=== PATIENT | male | born 1940 | race Caucasian/White ===

== ENCOUNTER 2016-12-25 13:04 | Inpatient (IN) ==
--- NOTE | 2016-12-25 14:30 | Emergency Department Note ---
Disposition Clinical Impression: Pneumonia Qualifiers: Pneumonia type: due to Haemophilus influenzae Laterality: unspecified laterality Lung location: unspecified part of lung Qualified Code(s): J14 - Pneumonia due to Hemophilus influenzae Disposition: Admitted As Inpatient Condition: Good Time of Disposition: 16:05 Recheck wound or abnormal lab - General Chief Complaint: ED Recheck/Abnormal Lab/Rx Stated Complaint: "Haemophilus influensia", needs IV antibiotic Time Seen by Provider: 12/25/16 13:27 Source: patient Mode of arrival: private vehicle Limitations: no limitations Nursing Notes Reviewed: Yes Vital Signs Reviewed: Yes - History of Present Illness HPI Narrative: 76-year-old male with past medical history of hypertension, hyperlipidemia, on cactuses, Gerd, migraines, coronary artery disease with stent placement, history of [place]. Patient was just at ED on 12/20/16 for fever and symptoms of possible pneumonia. Patient does have a chronic history of pneumonia with his bronchiectasis, and has a history of E. coli pneumonia. at his last ER visit, he was given a dose of IV cefepime and sent home with follow up with infectious disease. Patient was discharged home, and states that she spoke with ID over the phone, and was instructed to take cefdinir at home, which he already had a prescription for. patient states he still has been having fevers at home with brownish/yellow sputum production. he admits to nauesa without vomiting, diarrhea. he does report fevers ,chills, shortness of breath. he denies hemoptysis. patient is on oxygen at home, he uses 4L during the day as needed, and 2L at night. this morning, patient's spoke with ID over the phone, and they were instructed to come to the ED for further evaluation. patient's sputum cultures from last week grew pseudomonas and haemophilus influenza. Pt Subjective Complaint: abnormal lab(s) Initial Visit (ago): day(s) Initial Visit For: other (fever) Symptoms Since Prior Visit: fever - Related Data Home Medications Medication Instructions Recorded Confirmed Metoprolol XL (24 HR) Succ [Toprol 12.5 mg PO DAILY 02/04/15 12/25/16 Xl] Niacin (24 HR) [Niaspan] 500 mg PO HS 02/04/15 12/25/16 Albuterol Neb [Proventil Neb] 2.5 mg IH PRN PRN 12/31/15 12/25/16 Albuterol Sulfate [Proair Hfa] 2 puff IH Q4H PRN 12/31/15 12/25/16 Aspirin Enteric Coated [Aspirin EC] 81 mg PO DAILY 12/31/15 12/25/16 Budesonide/Formoterol 160/4.5 2 puff IH BID PRN 12/31/15 12/25/16 [Symbicort 160/4.5] Lansoprazole [Prevacid] 30 mg PO DAILY 12/31/15 12/25/16 [place]-3/Dha/Epa/Fish Oil [Fish Oil 1,000 mg PO DAILY 03/11/16 12/25/16 1,000 mg Softgel] Ranitidine HCl [Heartburn Relief] 150 mg PO PRN PRN 03/11/16 12/25/16 Acetylcysteine 600 mg PO TID 12/25/16 12/25/16 [I-Ullehl-q-Cysteine] Azelastine 0.1% Nasal [place] 1 spr NS BID 12/25/16 12/25/16 [Astelin] Oxygen 2 - 4 l NS AD 12/25/16 12/25/16 Testosterone Cypionate 200 mg IM Q10D 12/25/16 12/25/16 [Depo-Testosterone] Allergies Allergy/AdvReac Type Severity Reaction Status Date / Time levofloxacin [From Levaquin] AdvReac Rash Verified 12/25/16 16:30 ondansetron AdvReac Hives Verified 12/25/16 16:30 [From Zofran (as hydrochloride)] Penicillins AdvReac Rash Verified 12/25/16 16:30 All systems ED: reviewed and negative except as stated. Constitutional: Reports: fever, weakness. Denies: weight change, night sweats Respiratory: Denies: hemoptysis Past Medical History - Past Medical History Source: patient, old records reviewed, obtained from family, nursing notes reviewed, other Medical history: Reports: COPD, coronary artery disease, GERD, hyperlipidemia, hypertension, myocardial infarction Surgical history: Reports: angioplasty/stent, other Psychiatric history: Reports: no psych history - Social History Smoking Status: Never smoker Smokeless Tobacco Status: No Alcohol use: Reports: none Drug use: Reports: none Physical Exam - General Limitations: no limitations General appearance: alert, in no apparent distress, other (patient sitting on the bed comfortably, does not appear to be short of breath, he is in no apprent distress. ) - Head Head exam: atraumatic, normocephalic - Eye Eye exam: Present: normal appearance - ENT ENT exam: normal exam - Neck Neck exam: Present: normal inspection, trachea midline - Chest Chest inspection: Present: symmetric chest wall rise - Respiratory Respiratory exam: Present: other (rales and rhonchi present diffusely, bilaterally. ) - Cardiovascular Cardiovascular exam: Present: regular rate, normal rhythm, +S1, +S2 - Abdominal Exam Abdominal exam: Present: soft, Non-Tender, normal bowel sounds - Extremities Exam Extremities exam: Present: normal inspection - Neurological Exam Neurological exam: Present: alert, oriented X3 - Psychiatric Psychiatric exam: Present: normal affect, normal mood - Skin Skin exam: Present: warm, dry, intact Course Vital Signs Temperature 97.9 F 12/25/16 13:20 Pulse Rate 85 12/25/16 13:20 Respiratory Rate 16 12/25/16 13:20 Blood Pressure 137/69 12/25/16 13:20 O2 Sat by Pulse Oximetry 88 12/25/16 13:20 Temperature 98.3 F 12/26/16 07:10 Pulse Rate 85 12/26/16 07:10 Respiratory Rate 18 12/26/16 07:10 Blood Pressure 107/53 12/26/16 07:10 O2 Sat by Pulse Oximetry 95 12/26/16 07:10 Oxygen Delivery Oxygen Delivery Nasal Cannula Recheck wound or abnormal lab - MDM Narrative Medical decision making narrative: CBC showed no elevated WBC, Hg was 9.4 (baseline around 11), coags unremarkable , lactic acid and LFTs unremarkable. EKG showed no signs of ischemia. Prashanth received midline IV, and will be admitted to hospitalist for IV anitbiotics. chest xray showed airspace opacities at lung bases, pneumonia cannot be ruled out. spoke with Dr. Ferguson, who suggested that patient should be admitted for IV antibiotics, as there are no options for oral antibiotics based on his sensitivities. spoke with admitting physician Dr. Pandey, who agrees with admission. - Medical Records Medical records reviewed: Yes I reviewed the patient's medical records. - Lab Data Lab results reviewed: Yes I reviewed the patient's lab results. Result diagrams: 12/26/16 04:10 07/01/17 04:10 Lab Results 12/25/16 12/25/16 12/25/16 Range/Units 14:36 14:36 14:36 WBC 8.6 (4.3-11.1) K/mcL RBC 3.90 L (4.19-5.50) M/mcL Hgb 9.4 L (12.9-16.9) g/dL Hct 30.9 L (37.5-50.1) % MCV 79.2 L (83.0-100.0) fL MCH 24.1 L (28.0-33.3) pg MCHC 30.4 L (31.6-35.5) g/dL RDW 15.7 H (11.5-14.5) % Plt Count 317 (140-400) K/mcL MPV 8.8 L (9.4-12.4) fL Immature Gran % 0.3 (0-4) % Seg Neutrophils % 71.1 % Lymphocytes % 15.9 % Monocytes % 6.3 % Eosinophils % 5.8 % Basophils % 0.6 % Neutrophils # 6.1 (1.6-8.9) K/mcL Lymphocytes # 1.4 (0.6-4.6) K/mcL Monocytes # 0.5 (0.0-1.3) K/mcL Eosinophils # 0.5 (0.0-0.6) K/mcL Basophils # 0.1 (0.0-0.2) K/mcL PT 13.7 H (9.4-12.1) Seconds INR 1.3 APTT 26.8 (26.0-36.0) Seconds Sodium 136 (136-145) mEq/L Potassium 3.7 (3.5-4.5) mEq/L Chloride 101 (98-109) mEq/L Carbon Dioxide 30 H (19-29) mEq/L BUN 11 (8-26) mg/dL Creatinine 0.84 (0.72-1.25) mg/dL Est GFR ( Amer) > 60 (> 60) Est GFR (Non-Af Amer) > 60 (> 60) BUN/Creatinine Ratio 13 (6-26) Glucose 165 H (70-99) mg/dL Calculated Osmolality 285 (280-300) Lactic Acid (0.5-2.2) mmol/L Calcium 9.0 (8.6-10.8) mg/dL Magnesium 1.6 (1.6-2.6) mg/dL Total Bilirubin 0.3 (0.2-1.2) mg/dL Direct Bilirubin 0.2 (0.0-0.5) mg/dL Indirect Bilirubin 0.1 (0.0-1.2) mg/dL AST 11 (5-34) Units/L ALT 7 (0-55) Units/L Alkaline Phosphatase 70 (38-126) Units/L Serum Total Protein 7.1 (6.0-8.3) g/dL Albumin 3.0 L (3.5-5.0) g/dL Globulin 4.1 H (2.4-3.5) g/dL Albumin/Globulin Ratio 0.7 L (1.1-2.2) 12/25/16 Range/Units 14:36 WBC (4.3-11.1) K/mcL RBC (4.19-5.50) M/mcL Hgb (12.9-16.9) g/dL Hct (37.5-50.1) % MCV (83.0-100.0) fL MCH (28.0-33.3) pg MCHC (31.6-35.5) g/dL RDW (11.5-14.5) % Plt Count (140-400) K/mcL MPV (9.4-12.4) fL Immature Gran % (0-4) % Seg Neutrophils % % Lymphocytes % % Monocytes % % Eosinophils % % Basophils % % Neutrophils # (1.6-8.9) K/mcL Lymphocytes # (0.6-4.6) K/mcL Monocytes # (0.0-1.3) K/mcL Eosinophils # (0.0-0.6) K/mcL Basophils # (0.0-0.2) K/mcL PT (9.4-12.1) Seconds INR APTT (26.0-36.0) Seconds Sodium (136-145) mEq/L Potassium (3.5-4.5) mEq/L Chloride (98-109) mEq/L Carbon Dioxide (19-29) mEq/L BUN (8-26) mg/dL Creatinine (0.72-1.25) mg/dL Est GFR ( Amer) (> 60) Est GFR (Non-Af Amer) (> 60) BUN/Creatinine Ratio (6-26) Glucose (70-99) mg/dL Calculated Osmolality (280-300) Lactic Acid 1.7 (0.5-2.2) mmol/L Calcium (8.6-10.8) mg/dL Magnesium (1.6-2.6) mg/dL Total Bilirubin (0.2-1.2) mg/dL Direct Bilirubin (0.0-0.5) mg/dL Indirect Bilirubin (0.0-1.2) mg/dL AST (5-34) Units/L ALT (0-55) Units/L Alkaline Phosphatase (38-126) Units/L Serum Total Protein (6.0-8.3) g/dL Albumin (3.5-5.0) g/dL Globulin (2.4-3.5) g/dL Albumin/Globulin Ratio (1.1-2.2) - Radiology Data Radiology results reviewed: Yes I reviewed the patient's radiology results. - EKG Data EKG attestation: Yes I reviewed and interpreted this EKG. EKG results narrative: sinus rhythm with occasional PVCs . Ventricular rate 79, MS interval 130, QRS duration: 120, Qt/Qtc: 378/413, P-R-T axes 53 46 5 Attestation Statement - Attestation Attestation: I examined this patient and my medical decision-making was reviewed with the JOB ANALYST/PA/Advanced Practice Nurse/Resident Physician. I agree with the documented findings, disposition and treatment plan as described except to the extent set forth below. Patient presents with positive sputum culture for oral anabiotic resistance we spoke with Dr. Lopez infectious disease patient also spoke with the pulmonology office, his primary care office, and his infectious disease office, they will recommended IV anabiotic hospitalization. Patient is comfortable with no acute distress Catheter was placed admission to the hospitalist service.
[2016-12-25 14:49] LABS: Basophils # 0.1 K/mcL (0.0-0.2); Basophils % 0.6 %; Eosinophils # 0.5 K/mcL (0.0-0.6); Eosinophils % 5.8 %; Hematocrit 30.9 % (37.5-50.1); Hemoglobin 9.4 g/dL (12.9-16.9); Immature Granulocytes % 0.3 % (0-4); Lymphocytes # 1.4 K/mcL (0.6-4.6); Lymphocytes % 15.9 %; Mean Corpuscular HGB Conc 30.4 g/dL (31.6-35.5); Mean Corpuscular Hemoglobin 24.1 pg (28.0-33.3); Mean Corpuscular Volume 79.2 fL (83.0-100.0); Mean Platelet Volume 8.8 fL (9.4-12.4); Monocytes # 0.5 K/mcL (0.0-1.3); Monocytes % 6.3 %; Neutrophils # 6.1 K/mcL (1.6-8.9); Platelet Count 317 K/mcL (140-400); Red Cell Distribution Width 15.7 % (11.5-14.5); Segmented Neutrophils % 71.1 %
[2016-12-25 14:55] LABS: INR 1.3; Prothrombin Time 13.7 Seconds (9.4-12.1)
[2016-12-25 14:57] LABS: Activated Partial Thrombo Time 26.8 Seconds (26.0-36.0)
[2016-12-25 15:03] LABS: Alanine Aminotransferase 7 Units/L (0-55); Albumin/Globulin Ratio 0.7 (1.1-2.2); Alkaline Phosphatase 70 Units/L (38-126); Aspartate Amino Transferase 11 Units/L (5-34); BUN/Creatinine Ratio 13 (6-26); Bilirubin,Direct 0.2 mg/dL (0.0-0.5); Bilirubin,Indirect 0.1 mg/dL (0.0-1.2); Bilirubin,Total 0.3 mg/dL (0.2-1.2); Blood Urea Nitrogen 11 mg/dL (8-26); Carbon Dioxide 30 mEq/L (19-29); Chloride 101 mEq/L (98-109); Globulin 4.1 g/dL (2.4-3.5); Glucose 165 mg/dL (70-99); Magnesium 1.6 mg/dL (1.6-2.6); Osmolality,Calculated 285 (280-300); Potassium 3.7 mEq/L (3.5-4.5); Sodium 136 mEq/L (136-145); Total Protein 7.1 g/dL (6.0-8.3); eGFR For African Americans > 60 (> 60); eGFR For Non-African Americans > 60 (> 60)
[2016-12-25] MEDS ORDERED: Naloxone 0.4 MG/ML INJ IVP PRN (16:42)
[2016-12-25] MEDS ORDERED: Famotidine 20 MG TABLET PO PRN (16:58)
--- NOTE | 2016-12-25 17:29 | Internal Med History&Physical ---
<Wanda Norman - Last Filed: 12/25/16 17:46> Date of Encounter: 12/25/16 Time of Encounter: 17:26 Assessment and Plan (1) Pneumonia Current visit: Yes Status: Acute 1patient had been treated as outpatie cultures came back with Haemophilus influenza as well as Pseudomonas. Sensitive to only IV antibiotics we will initiate on meropenem. PICC line was placed for long-term IV antibiotics administration 2 we will continue with oxygen titrated to maintain SPO2 greater than 92% 3 bronchodilators 4 consult infectious disease-consult placed on the to follow-up with call per day team Qualifiers: Pneumonia type: due to Haemophilus influenzae Laterality: unspecified laterality Lung location: unspecified part of lung Qualified Code(s): J14 - Pneumonia due to Hemophilus influenzae (2) Respiratory failure with hypoxia Current visit: Yes Status: Acute 1 patient presented with dyspnea and hypoxia SPO2 is 88% on room air requiring oxygen supplementation. He was being treated for pneumonia cultures indicated Haemophilus as well as Pseudomonas. We will continue with IV antibiotics 2 continue with oxygen titrated maintaining SPO2 greater than 92% 3 bronchodilators Qualifiers: Chronicity: acute on chronic Qualified Code(s): J96.21 - Acute and chronic respiratory failure with hypoxia (3) CAD (coronary artery disease) Current visit: No Status: Chronic 1 we will continue with aspirin and beta tayler 2 low sodium diet 3 nitrates as needed Qualifiers: Coronary Disease-Associated Artery/Lesion type: [place] artery [place] vs. transplanted heart: [place] heart Associated angina: without angina Qualified Code(s): I25.10 - Atherosclerotic heart disease of [place] coronary artery without angina pectoris (4) Hypertension Current visit: No Status: Chronic 1 presently controlled we will continue with metoprolol Qualifiers: Hypertension type: essential hypertension Qualified Code(s): I10 - Essential (primary) hypertension (5) COPD (chronic obstructive pulmonary disease) Current visit: No Status: Chronic 1 we will continue with oxygen titrated to maintain SPO2 greater than 92% 3 bronchodilators Qualifiers: COPD type: unspecified COPD Qualified Code(s): J44.9 - Chronic obstructive pulmonary disease, unspecified (6) DVT prophylaxis Current visit: Yes Status: Acute Lovenox subcutaneous Internal Medicine - H&P: HPI Chief complaint: SOB cough Admitted From: Emergency Dept Plans for Post Hospital Care: Home History of present illness: Mr. Small is a 76 year old male with past history of hypertension hyperlipidemia GERD migraines coronary disease with stent placement history of [place] recurrent pneumonia. Patient has a past history of chronic pneumonia with Escherichia coli most recent earlier this month and he had received 2 weeks of IV antibiotic treatment.Patient was just in the ED on 12/20/16 for fevers and symptoms of possible pneumonia. He was given a dose of IV cefepime sputum culture was obtained and he was advised to follow up with infectious disease and discharged home. The spoke with infectious disease of the family was instructed to take Cefdinir which ER he had a prescription for. The patient continued to have fevers chills cough shortness of breath requiring supplemental oxygen use brownish yellow sputum production as well as nausea during coughing. Patient is normally on oxygen 2 L at night 4 L during the day as needed however he is required 24-hour oxygen use. Today the patient's received a phone call from infectious disease advising patient to go to the ER for evaluation his sputum culture grew Pseudomonas and Haemophilus influenza. He presented to the ER with these complaints. Upon presentation patient was hypoxic with SPO2 of 88% on room air. He is 96 on 4 L. His white count is 8.6 magnesium was 1.6 lactate was 1.7rest lab work was unremarkable. Chest x-ray suggestive of pneumonia He has been admitted for further workup and evaluation. Presently the patient denies any chest pain shortness of breath he does not appear to be in respiratory distress. His lung sounds have some scattered coarse rhonchi and occasional expiratory wheeze. Heart sounds S1-S2 with no rubs clicks, murmurs noted. Abdomen soft nontender no pedal edema noted. He is sinus rhythm on the monitor. Presently is hemodynamically stable. Past Med Surg Social Fam HX - Past Medical History Medical history: COPD, coronary artery disease, GERD, hyperlipidemia, hypertension, myocardial infarction Psychiatric history: no psych history - Past Surgical History Surgical History: angioplasty/stent, other - Social History Smoking Status: Never smoker Smokeless Tobacco Status: No Alcohol use: none Drug use: none - Family History Mother Living Status: Hx Family Respiratory Disorders: Yes (lung cancer) Hx Family Cancer: Yes (lung) Father Adopted: No Family Member Ethnicity: Non- Living Status: Hx Family Cardiac Disorders: Yes (Heart attack, htn) Hx Family Respiratory Disorders: No Hx Family Cancer: Yes Hx Family GI Disorders: No Hx Family Endocrine Disorder: Yes Hx Family Neuromuscular Disorders: No Hx Family Neurologic Disorders: No Hx Family HEENT Disorders: No Hx Family Autoimmune Disorders: Yes Brother Hx Family Cancer: Yes (Leukemia) Internal Medicine - H&P: Meds Metoprolol XL (24 HR) Succ [Toprol Xl] 12.5 mg PO DAILY 02/04/15 [History] Niacin (24 HR) [Niaspan] 500 mg PO HS 02/04/15 [History] Albuterol Neb [Proventil Neb] 2.5 mg IH PRN PRN 12/31/15 [History] Albuterol Sulfate [Proair Hfa] 2 puff IH Q4H PRN 12/31/15 [History] Aspirin Enteric Coated [Aspirin EC] 81 mg PO DAILY 12/31/15 [History] Budesonide/Formoterol 160/4.5 [Symbicort 160/4.5] 2 puff IH BID PRN 12/31/15 [ History] Lansoprazole [Prevacid] 30 mg PO DAILY 12/31/15 [History] [place]-3/Dha/Epa/Fish Oil [Fish Oil 1,000 mg Softgel] 1,000 mg PO DAILY 03/11/16 [History] Ranitidine HCl [Heartburn Relief] 150 mg PO PRN PRN 03/11/16 [History] Acetylcysteine [J-Rfmrzv-u-Cysteine] 600 mg PO TID 12/25/16 [History] Azelastine 0.1% Nasal [place] [Astelin] 1 spr NS BID 12/25/16 [History] Oxygen 2 - 4 l NS AD 12/25/16 [History] Testosterone Cypionate [Depo-Testosterone] 200 mg IM Q10D 12/25/16 [History] Allergies levofloxacin [From Levaquin] Adverse Reaction (Verified 12/25/16 16:30) Rash ondansetron [From Zofran (as hydrochloride)] Adverse Reaction (Verified 16:30) Hives Penicillins Adverse Reaction (Verified 12/25/16 16:30) Rash All Systems PM: A 10-system review of systems was performed and is negative for pertinent findings except as documented above in the HPI. - Constitutional Constitutional: no chills, no fever(s), no night sweats - EENT Eyes: no change in vision, no discharge, no pain, no photophobia Nose, mouth and throat: no dysphagia, no nasal discharge, no neck pain, no sore throat - Cardiovascular Cardiovascular ROS IM: no chest pain, no diaphoresis, no dyspnea, no lightheadedness, no palpitations, no syncope - Respiratory Respiratory: cough, dyspnea, change in phlegm color, no wheezing, no excessive phlegm production - Gastrointestinal Gastrointestinal: no abdominal pain, no diarrhea, no hematemesis, no hematochezia, no melena, no nausea, no vomiting - Musculoskeletal Musculoskeletal ROS IM: no numbness, no tingling - Integumentary Integumentary IM: no rash, no unusual bruising - Neurological Neurological ROS: no confusion, no convulsions, no focal weakness, no numbness, no tingling, no tremor(s) - Hematologic/Lymphatic Hematologic/Lymphatic: no easy bruising - Constitutional Vitals: Temp Pulse Resp BP Pulse Ox 97.9 F 76 16 125/68 94 12/25/16 13:20 12/25/16 16:57 12/25/16 16:57 12/25/16 16:57 12/25/16 16:57 General appearance: Present: A&O X 3 - Head Head exam: Present: atraumatic, normocephalic - Eye Eye exam: Present: PERRL, conjuntiva pink, sclera anicteric Pupils: Present: PERRL - Neck Neck exam general surgery: Present: supple, trachea midline. Absent: lymphadenopathy - Respiratory Respiratory exam: Present: rhonchi - Cardiovascular Cardiovascular exam: Present: RRR, +S1, +S2. Absent: diastolic murmur, gallop, rubs, systolic murmur - GI/Abdominal GI/Abdominal exam: Present: normal bowel sounds, soft, no peritoneal signs. Absent: distended, tenderness - Extremities Exam Extremities exam: Present: warm, radial pulses palpable and symetrical. Absent : calf tenderness, cyanotic, pedal edema - Neurological Exam Neurological exam: Present: CN II-XII intact, oriented X3, no focal deficits. Absent: pronater drift, facial droop, speech deficit - Skin Skin exam: Present: dry, intact Internal Med - H&P Results - Labs CBC & Chem 7: 12/25/16 14:36 12/25/16 14:36 Labs: Short CBC 12/25/16 Range/Units 14:36 WBC 8.6 (4.3-11.1) K/mcL Hgb 9.4 L (12.9-16.9) g/dL Hct 30.9 L (37.5-50.1) % Plt Count 317 (140-400) K/mcL Neutrophils # 6.1 (1.6-8.9) K/mcL BMP 12/25/16 14:36 Sodium 136 Potassium 3.7 Chloride 101 Carbon Dioxide 30 H BUN 11 Creatinine 0.84 Glucose 165 H Calcium 9.0 Liver Function 12/25/16 Range/Units 14:36 Total Bilirubin 0.3 (0.2-1.2) mg/dL Direct Bilirubin 0.2 (0.0-0.5) mg/dL AST 11 (5-34) Units/L ALT 7 (0-55) Units/L Alkaline Phosphatase 70 (38-126) Units/L Albumin 3.0 L (3.5-5.0) g/dL - EKG Data EKG shows normal: sinus rhythm - Impressions ITS Impressions Chest X-Ray 12/25/16 14:23 IMPRESSION: Interstitial and airspace opacity is re-identified at the lung bases, not significantly changed when compared to the recent prior exam, although slightly increased over time. Superimposed pneumonia on the background of chronic interstitial disease should be considered. D/ / 12/25/2016 15:32:50 Gautam Gomez MD / [place] Interpreting Provider: Gautam Gomez MD - Diagnostic Studies Chest x-ray Additional comments: Chest X-Ray 12/25/16 14:23 IMPRESSION: Interstitial and airspace opacity is re-identified at the lung bases, not significantly changed when compared to the recent prior exam, although slightly increased over time. Superimposed pneumonia on the background of chronic interstitial disease should be considered. D/ / 12/25/2016 15:32:50 Gautam Gomez MD / edwin Interpreting Provider: Gautam Gomez MD <Kleber Pandey - Last Filed: 12/25/16 18:46> Date of Encounter: 12/25/16 Internal Medicine - H&P: HPI History of present illness: Mr. Small is a 76 year old male All Systems PM: A 10-system review of systems was performed and is negative for pertinent findings except as documented above in the HPI. - Constitutional Vitals: Temp Pulse Resp BP Pulse Ox 97.9 F 80 18 131/61 96 12/25/16 13:20 12/25/16 17:30 12/25/16 17:37 12/25/16 17:37 12/25/16 17:30 Internal Med - H&P Results - Labs CBC & Chem 7: 12/25/16 14:36 12/25/16 14:36 - Attending Attestation I have reviewed this patient and discussed plan of care with ANDIE Norman Known patient with bronchiectasis and recurrent pneumonia, who had presented to the ER with worsening cough and fever with increasing sputum, sputum culture sent from ER grew Pseudomonas and H.infleunza sensitive to Cefepime, Ceftazidime , Tobramycin, Amikacin, Zosyn and Meropenem Patient has penicillin allergies Labs unremarkable , no leukocytosis, no documented fever or tachycardia in this stay Plan is to start Meropenem, will need home infusions, ID evaluation or follow up as out-patient if patient will be discharged before Wednesday. Rest of details as in ANDIE Norman documentation which I agree with
[2016-12-25] MEDS ORDERED: Albuterol 2.5 MG/3 ML NEBULIZER IH PRN (20:00)
[2016-12-25] MEDS ORDERED: NON-FORMULARY MEDICATION 1 EACH EACH (Acetylcysteine [N-Acetyl-L-Cysteine] 600 MG) PO SCH (21:00)
[2016-12-25] MEDS: Niacin (24 HR) 500 MG TAB.ER.24H PO SCH (21:14)
[2016-12-25] MEDS: Meropenem 1,000 MG in 0.9 % Sodium Chloride Mini Bag 100 ML IVPB SCH (21:14)
[2016-12-25] MEDS: Acetaminophen 325 MG TABLET PO PRN (21:29)
[2016-12-25] MEDS: Ipratropium/Albuterol Neb 3 ML IH SCH (22:55)
[2016-12-26 04:21] LABS: Basophils # 0.1 K/mcL (0.0-0.2); Basophils % 0.5 %; Eosinophils # 0.1 K/mcL (0.0-0.6); Eosinophils % 1.2 %; Hematocrit 29.5 % (37.5-50.1); Hemoglobin 8.9 g/dL (12.9-16.9); Immature Granulocytes % 0.4 % (0-4); Lymphocytes # 1.4 K/mcL (0.6-4.6); Lymphocytes % 13.6 %; Mean Corpuscular HGB Conc 30.2 g/dL (31.6-35.5); Mean Corpuscular Hemoglobin 23.6 pg (28.0-33.3); Mean Corpuscular Volume 78.2 fL (83.0-100.0); Monocytes # 0.7 K/mcL (0.0-1.3); Monocytes % 6.5 %; Neutrophils # 8.3 K/mcL (1.6-8.9); Platelet Count 331 K/mcL (140-400); Red Blood Count 3.77 M/mcL (4.19-5.50); Red Cell Distribution Width 15.7 % (11.5-14.5); Segmented Neutrophils % 77.8 %
[2016-12-26 04:32] LABS: BUN/Creatinine Ratio 13 (6-26); Blood Urea Nitrogen 11 mg/dL (8-26); Calcium 8.6 mg/dL (8.6-10.8); Carbon Dioxide 29 mEq/L (19-29); Chloride 98 mEq/L (98-109); Glucose 117 mg/dL (70-99); Osmolality,Calculated 274 (280-300); Potassium 3.9 mEq/L (3.5-4.5); Sodium 132 mEq/L (136-145); eGFR For African Americans > 60 (> 60); eGFR For Non-African Americans > 60 (> 60)
[2016-12-26 04:43] LABS: Platelet Estimate Normal (Normal); Reactive Lymphocytes Present (Not Present)
[2016-12-26] MEDS: Ipratropium/Albuterol Neb 3 ML IH SCH ×4 (04:45→22:48)
[2016-12-26] MEDS: Acetaminophen 325 MG TABLET PO PRN (04:56)
[2016-12-26] MEDS: Meropenem 1,000 MG in 0.9 % Sodium Chloride Mini Bag 100 ML IVPB SCH ×2 (04:57→11:37)
[2016-12-26] MEDS: *HR* Enoxaparin 40 MG/0.4 ML SYRINGE SQ SCH (06:03)
[2016-12-26] MEDS: Budesonide/Formoterol 160/4.5 MDI IH SCH ×2 (09:38→22:49)
[2016-12-26] MEDS: Metoprolol XL (24 HR) Succ 25 MG TAB.ER.24H PO SCH (11:29)
[2016-12-26] MEDS: Aspirin Enteric Coated 81 MG Tablet PO SCH (11:29)
[2016-12-26] MEDS: Omega-3/Dha/Epa/Fish Oil [Fish Oil 1,000 Mg Softgel] PO SCH (11:29)
--- NOTE | 2016-12-26 16:11 | Internal Med Progress Note ---
Date of Encounter: 12/26/16 Time of Encounter: 16:08 - Assessment and plan (1) Pneumonia Current Visit: Yes Status: Acute Assessment and plan: Patient is known to have a bronchiectasis. Patient has a follow-up with loss prevention operations manager Dr. Ordonez She was recently evaluated in the emergency room and was sent home after giving IV cefepime. Noted that patient's sputum culture was positive for Pseudomonas/Haemophilus influenza. Patient called infectious disease clinic and from there he was guided to come to the emergency room. Patient was admitted from emergency room for possible Pseudomonas pneumonia. Plan: Continue IV meropenem for now. Continue home medications. Informed patient and his at length regarding the treatment plan. Qualifiers: Pneumonia type: due to Haemophilus influenzae Laterality: unspecified laterality Lung location: unspecified part of lung Qualified Code(s): J14 - Pneumonia due to Hemophilus influenzae (2) Respiratory failure with hypoxia Current Visit: Yes Status: Acute Assessment and plan: Respiratory failure with hypoxia is likely secondary to the COPD. We will continue antibiotics. We will give him bronchodilators as scheduled Qualifiers: Chronicity: acute on chronic Qualified Code(s): J96.21 - Acute and chronic respiratory failure with hypoxia (3) CAD (coronary artery disease) Current Visit: No Status: Chronic Assessment and plan: Denies chest pain at this point. Will continue home medications. Qualifiers: Coronary Disease-Associated Artery/Lesion type: [place] artery [place] vs. transplanted heart: [place] heart Associated angina: without angina Qualified Code(s): I25.10 - Atherosclerotic heart disease of [place] coronary artery without angina pectoris (4) Hypertension Current Visit: No Status: Chronic Assessment and plan: Blood pressure is within acceptable limits Qualifiers: Hypertension type: essential hypertension Qualified Code(s): I10 - Essential (primary) hypertension (5) DVT prophylaxis Current Visit: Yes Status: Acute Assessment and plan: Lovenox Decision-making: This patient has a moderate to severe risk of worsening in spite of being on appropriate treatment due to the chronic nature of underlying bronchiectasis 6 - Subjective Interval history: Patient seen and examined. Chart reviewed. Patient is comfortably sitting in the bed. Next line patient denies chest pain , shortness of breath, abdominal pain, nausea, vomiting and diarrhea. Patient's is at bedside. - Constitutional Vitals: Temp Pulse Resp BP Pulse Ox 97.8 F 82 18 106/59 94 07/01/17 16:00 12/26/16 16:00 12/26/16 16:00 12/26/16 16:00 12/26/16 16:00 General appearance: Present: A&O X 3 - Head Head exam: Present: atraumatic, normocephalic - Eye Eye exam: Present: PERRL, conjuntiva pink, sclera anicteric Pupils: Present: PERRL - Neck Neck exam general surgery: Present: supple, trachea midline. Absent: lymphadenopathy - Respiratory Respiratory exam: Present: CTAB. Absent: accessory muscle use, rales, rhonchi, wheezes Additional comments: Multiple crepitations noted Bibasal crepitations. - Cardiovascular Cardiovascular exam: Present: RRR, +S1, +S2. Absent: diastolic murmur, gallop, rubs, systolic murmur - GI/Abdominal GI/Abdominal exam: Present: normal bowel sounds, soft, no peritoneal signs. Absent: distended, tenderness - Extremities Exam Extremities exam: Present: warm, radial pulses palpable and symetrical. Absent : calf tenderness, cyanotic, pedal edema - Neurological Exam Neurological exam: Present: CN II-XII intact, oriented X3, no focal deficits. Absent: pronater drift, facial droop, speech deficit - Skin Skin exam: Present: dry, intact Internal Medicine: Result - Labs CBC & Chem 7: 12/26/16 04:10 12/26/16 04:10 Labs: Short CBC 12/26/16 Range/Units 04:10 WBC 10.6 (4.3-11.1) K/mcL Hgb 8.9 L (12.9-16.9) g/dL Hct 29.5 L (37.5-50.1) % Plt Count 331 (140-400) K/mcL Neutrophils # 8.3 (1.6-8.9) K/mcL BMP 12/26/16 04:10 Sodium 132 L Potassium 3.9 Chloride 98 Carbon Dioxide 29 BUN 11 Creatinine 0.82 Glucose 117 H Calcium 8.6 - ABG Interpretation ABG results: PT/INR, D-dimer PT 13.7 Seconds (9.4-12.1) H 12/25/16 14:36 Consult Discharge Plan - Plan Referrals: Rocio Cervantes CNP [Primary Care Provider] -
[2016-12-26] MEDS ORDERED: Meropenem 1,000 MG in 0.9 % Sodium Chloride Mini Bag 100 ML IVPB SCH ×3 (18:00)
[2016-12-26] MEDS: Niacin (24 HR) 500 MG TAB.ER.24H PO SCH (21:36)
[2016-12-26] MEDS: Cefepime HCl 2,000 MG in D5% in Water (Mini-Bag+) 100 ML IVPB SCH (23:05)
[2016-12-27 04:00] LABS: Basophils % 0.7 %; Eosinophils # 0.3 K/mcL (0.0-0.6); Eosinophils % 5.2 %; Hematocrit 27.9 % (37.5-50.1); Hemoglobin 8.4 g/dL (12.9-16.9); Immature Granulocytes % 0.5 % (0-4); Lymphocytes # 1.6 K/mcL (0.6-4.6); Lymphocytes % 26.9 %; Mean Corpuscular HGB Conc 30.1 g/dL (31.6-35.5); Mean Corpuscular Hemoglobin 23.7 pg (28.0-33.3); Mean Corpuscular Volume 78.6 fL (83.0-100.0); Mean Platelet Volume 9.2 fL (9.4-12.4); Monocytes # 0.3 K/mcL (0.0-1.3); Monocytes % 5.2 %; Neutrophils # 3.7 K/mcL (1.6-8.9); Platelet Count 333 K/mcL (140-400); Red Blood Count 3.55 M/mcL (4.19-5.50); Red Cell Distribution Width 15.6 % (11.5-14.5); Segmented Neutrophils % 61.5 %
[2016-12-27 04:05] LABS: Alanine Aminotransferase 6 Units/L (0-55); Albumin 2.8 g/dL (3.5-5.0); Albumin/Globulin Ratio 0.7 (1.1-2.2); Alkaline Phosphatase 58 Units/L (38-126); Aspartate Amino Transferase 13 Units/L (5-34); BUN/Creatinine Ratio 16 (6-26); Bilirubin,Total 0.2 mg/dL (0.2-1.2); Blood Urea Nitrogen 12 mg/dL (8-26); Calcium 8.9 mg/dL (8.6-10.8); Carbon Dioxide 30 mEq/L (19-29); Chloride 101 mEq/L (98-109); Glucose 113 mg/dL (70-99); Osmolality,Calculated 287 (280-300); Potassium 4.1 mEq/L (3.5-4.5); Sodium 138 mEq/L (136-145); Total Protein 6.8 g/dL (6.0-8.3); eGFR For African Americans > 60 (> 60); eGFR For Non-African Americans > 60 (> 60)
[2016-12-27] MEDS: Ipratropium/Albuterol Neb 3 ML IH SCH ×4 (04:57→21:49)
[2016-12-27] MEDS: *HR* Enoxaparin 40 MG/0.4 ML SYRINGE SQ SCH (06:01)
[2016-12-27] MEDS: Metoprolol XL (24 HR) Succ 25 MG TAB.ER.24H PO SCH (08:21)
[2016-12-27] MEDS: Aspirin Enteric Coated 81 MG Tablet PO SCH (08:21)
[2016-12-27] MEDS: Omega-3/Dha/Epa/Fish Oil [Fish Oil 1,000 Mg Softgel] PO SCH (08:22)
[2016-12-27] MEDS: Cefepime HCl 2,000 MG in D5% in Water (Mini-Bag+) 100 ML IVPB SCH ×3 (08:22→23:52)
[2016-12-27] MEDS: Budesonide/Formoterol 160/4.5 MDI IH SCH ×3 (10:33→21:49)
--- NOTE | 2016-12-27 15:35 | Internal Med Progress Note ---
Date of Encounter: 12/27/16 Time of Encounter: 15:33 - Assessment and plan (1) Pneumonia Current Visit: Yes Status: Acute Assessment and plan: Patient is known to have a bronchiectasis. Patient has a follow-up with renal dietitian Dr. Ordonez She was recently evaluated in the emergency room and was sent home after giving IV cefepime. Noted that patient's sputum culture was positive for Pseudomonas/Haemophilus influenza. Patient called infectious disease clinic and from there he was guided to come to the emergency room. Patient was admitted from emergency room for possible Pseudomonas pneumonia. Plan: Continue IV meropenem for now. Continue home medications. Informed patient and his at length regarding the treatment plan. 12/27/2016 As compared to yesterday patient is much comfortable and better. Patient oxygenation is more than 95 on 2 L. Patient is currently on a cefepime day 2 Yesterday I spoke with infectious disease specialist. Infectious disease recommended cefepime. Patient also has allergy to penicillin but patient claims that this allergy was "told to have " him in his childhood. Patient really does not remember [place] is a true penicillin allergy or not. Patient received yesterday cefepime. Patient did not have any rash, hypotensive episode, dizziness or diarrhea. Plan: We will continue present antibiotics regimen for now. We will get ID evaluation tomorrow. Qualifiers: Pneumonia type: due to Haemophilus influenzae Laterality: unspecified laterality Lung location: unspecified part of lung Qualified Code(s): J14 - Pneumonia due to Hemophilus influenzae (2) Respiratory failure with hypoxia Current Visit: Yes Status: Acute Assessment and plan: Respiratory failure with hypoxia is likely secondary to the COPD. We will continue antibiotics. We will give him bronchodilators as scheduled Qualifiers: Chronicity: acute on chronic Qualified Code(s): J96.21 - Acute and chronic respiratory failure with hypoxia (3) CAD (coronary artery disease) Current Visit: No Status: Chronic Assessment and plan: Denies chest pain at this point. Will continue home medications. Qualifiers: Coronary Disease-Associated Artery/Lesion type: [place] artery [place] vs. transplanted heart: [place] heart Associated angina: without angina Qualified Code(s): I25.10 - Atherosclerotic heart disease of [place] coronary artery without angina pectoris (4) Hypertension Current Visit: No Status: Chronic Assessment and plan: Blood pressure is within acceptable limits Qualifiers: Hypertension type: essential hypertension Qualified Code(s): I10 - Essential (primary) hypertension (5) DVT prophylaxis Current Visit: Yes Status: Acute Assessment and plan: Lovenox Decision-making: This patient has a moderate to severe risk of worsening in spite of being on appropriate treatment due to the chronic nature of underlying bronchiectasis 6 - Subjective Interval history: Patient seen and examined. Chart reviewed. Patient is comfortably sitting in the bed. Next line patient denies chest pain , shortness of breath, abdominal pain, nausea, vomiting and diarrhea. Patient's is at bedside. 12/27/2016 Patient seen and examined. Chart reviewed. Patient complains occasionally coughs. Patient has a yellowish-white expectoration. Patient denies chest pain, shortness of breath, abdominal pain, nausea, vomiting and diarrhea. - Constitutional Vitals: Temp Pulse Resp BP Pulse Ox 97.9 F 82 18 103/65 98 12/27/16 07:03 12/27/16 07:03 12/27/16 10:56 12/27/16 07:03 12/27/16 10:56 General appearance: Present: A&O X 3, pleasant, answers questions appropriately Exam: I have examined this patient at bedside. No family at bedside. Examination of head, nose, eyes, ears, throat and cervical area did not reveal any abnormalities. Examination of the heart and lung is within normal limits except bilateral crepitations at the base. Examination of the abdomen is benign. A brief neurological examination did not reveal any abnormality. Dermatologic examination did not reveal any breaks or bruise. - Head Head exam: Present: atraumatic, normocephalic - Eye Eye exam: Present: PERRL, conjuntiva pink, sclera anicteric Pupils: Present: PERRL - Neck Neck exam general surgery: Present: supple, trachea midline. Absent: lymphadenopathy - Respiratory Respiratory exam: Present: CTAB. Absent: accessory muscle use, rales, rhonchi, wheezes - Cardiovascular Cardiovascular exam: Present: RRR, +S1, +S2. Absent: diastolic murmur, gallop, rubs, systolic murmur - GI/Abdominal GI/Abdominal exam: Present: normal bowel sounds, soft, no peritoneal signs. Absent: distended, tenderness - Extremities Exam Extremities exam: Present: warm, radial pulses palpable and symetrical. Absent : calf tenderness, cyanotic, pedal edema - Neurological Exam Neurological exam: Present: CN II-XII intact, oriented X3, no focal deficits. Absent: pronater drift, facial droop, speech deficit - Skin Skin exam: Present: dry, intact Internal Medicine: Result - Labs CBC & Chem 7: 12/27/16 03:44 12/27/16 03:44 Labs: Short CBC 12/27/16 Range/Units 03:44 WBC 6.0 (4.3-11.1) K/mcL Hgb 8.4 L (12.9-16.9) g/dL Hct 27.9 L (37.5-50.1) % Plt Count 333 (140-400) K/mcL Neutrophils # 3.7 (1.6-8.9) K/mcL BMP 12/27/16 03:44 Sodium 138 Potassium 4.1 Chloride 101 Carbon Dioxide 30 H BUN 12 Creatinine 0.77 Glucose 113 H Calcium 8.9 Liver Function 12/27/16 Range/Units 03:44 Total Bilirubin 0.2 (0.2-1.2) mg/dL AST 13 (5-34) Units/L ALT 6 (0-55) Units/L Alkaline Phosphatase 58 (38-126) Units/L Albumin 2.8 L (3.5-5.0) g/dL - ABG Interpretation ABG results: PT/INR, D-dimer PT 13.7 Seconds (9.4-12.1) H 12/25/16 14:36 Consult Discharge Plan - Plan Referrals: Rocio Cervantes CNP [Primary Care Provider] -
[2016-12-27] MEDS: Niacin (24 HR) 500 MG TAB.ER.24H PO SCH (21:26)
[2016-12-28 03:48] LABS: Basophils # 0.1 K/mcL (0.0-0.2); Basophils % 0.6 %; Eosinophils # 0.6 K/mcL (0.0-0.6); Eosinophils % 6.8 %; Hematocrit 27.7 % (37.5-50.1); Hemoglobin 8.3 g/dL (12.9-16.9); Immature Granulocytes % 0.5 % (0-4); Immature Platelets 1.9 % (1.1-6.1); Lymphocytes # 1.9 K/mcL (0.6-4.6); Lymphocytes % 23.5 %; Mean Corpuscular Hemoglobin 23.6 pg (28.0-33.3); Mean Corpuscular Volume 78.9 fL (83.0-100.0); Mean Platelet Volume 8.8 fL (9.4-12.4); Monocytes # 0.4 K/mcL (0.0-1.3); Monocytes % 4.8 %; Neutrophils # 5.2 K/mcL (1.6-8.9); Platelet Count 409 K/mcL (140-400); Red Blood Count 3.51 M/mcL (4.19-5.50); Red Cell Distribution Width 15.9 % (11.5-14.5); Segmented Neutrophils % 63.8 %
[2016-12-28 04:00] LABS: Alanine Aminotransferase 10 Units/L (0-55); Albumin 2.9 g/dL (3.5-5.0); Albumin/Globulin Ratio 0.7 (1.1-2.2); Alkaline Phosphatase 55 Units/L (38-126); Aspartate Amino Transferase 18 Units/L (5-34); BUN/Creatinine Ratio 17 (6-26); Bilirubin,Total 0.2 mg/dL (0.2-1.2); Blood Urea Nitrogen 13 mg/dL (8-26); Calcium 8.9 mg/dL (8.6-10.8); Carbon Dioxide 29 mEq/L (19-29); Chloride 100 mEq/L (98-109); Globulin 3.9 g/dL (2.4-3.5); Glucose 102 mg/dL (70-99); Osmolality,Calculated 284 (280-300); Potassium 4.2 mEq/L (3.5-4.5); Sodium 137 mEq/L (136-145); Total Protein 6.8 g/dL (6.0-8.3); eGFR For African Americans > 60 (> 60); eGFR For Non-African Americans > 60 (> 60)
[2016-12-28] MEDS: *HR* Enoxaparin 40 MG/0.4 ML SYRINGE SQ SCH (05:19)
[2016-12-28] MEDS: Ipratropium/Albuterol Neb 3 ML IH SCH ×3 (07:34→15:53)
[2016-12-28] MEDS: Metoprolol XL (24 HR) Succ 25 MG TAB.ER.24H PO SCH (08:17)
[2016-12-28] MEDS: Aspirin Enteric Coated 81 MG Tablet PO SCH (08:17)
[2016-12-28] MEDS: Cefepime HCl 2,000 MG in D5% in Water (Mini-Bag+) 100 ML IVPB SCH ×2 (08:18→15:38)
[2016-12-28] MEDS: Omega-3/Dha/Epa/Fish Oil [Fish Oil 1,000 Mg Softgel] PO SCH (08:35)
--- NOTE | 2016-12-28 08:46 | Internal Med Progress Note ---
<MichelleyesicaOrtiz - Last Filed: 12/28/16 17:57> Date of Encounter: 12/28/16 Time of Encounter: 09:15 - Assessment and plan (1) Pneumonia Status: Acute Assessment and plan: Patient is known to have a bronchiectasis. Patient has a follow-up with waste and batting waste chopper Dr. Ordonez She was recently evaluated in the emergency room and was sent home after giving IV cefepime. Noted that patient's sputum culture was positive for Pseudomonas/Haemophilus influenza. Patient called infectious disease clinic and from there he was guided to come to the emergency room. Patient was admitted from emergency room for possible Pseudomonas pneumonia. Plan: Continue IV meropenem for now. Continue home medications. Informed patient and his at length regarding the treatment plan. 12/27/2016 As compared to yesterday patient is much comfortable and better. Patient oxygenation is more than 95 on 2 L. Patient is currently on a cefepime day 2 Yesterday I spoke with infectious disease specialist. Infectious disease recommended cefepime. Patient also has allergy to penicillin but patient claims that this allergy was "told to have " him in his childhood. Patient really does not remember [place] is a true penicillin allergy or not. Patient received yesterday cefepime. Patient did not have any rash, hypotensive episode, dizziness or diarrhea. Plan: We will continue present antibiotics regimen for now. We will get ID evaluation tomorrow. 12/28/2016 Continue cefepime per ID recommendations. DC to home today with home health care for IV cefepime infusions. Follow-up with ID in 2 weeks and obtain weekly CBC and CMP Qualifiers: Pneumonia type: due to Haemophilus influenzae Laterality: unspecified laterality Lung location: unspecified part of lung Qualified Code(s): J14 - Pneumonia due to Hemophilus influenzae (2) CAD (coronary artery disease) Status: Chronic Assessment and plan: Denies chest pain at this point. Will continue home medications. Qualifiers: Coronary Disease-Associated Artery/Lesion type: [place] artery [place] vs. transplanted heart: [place] heart Associated angina: without angina Qualified Code(s): I25.10 - Atherosclerotic heart disease of [place] coronary artery without angina pectoris (3) Hypertension Status: Chronic Assessment and plan: Blood pressure is within acceptable limits Qualifiers: Hypertension type: essential hypertension Qualified Code(s): I10 - Essential (primary) hypertension (4) Respiratory failure with hypoxia Status: Acute Assessment and plan: Respiratory failure with hypoxia is likely secondary to the COPD. Will continue antibiotics. Continue bronchodilators as scheduled Qualifiers: Chronicity: acute on chronic Qualified Code(s): J96.21 - Acute and chronic respiratory failure with hypoxia (5) DVT prophylaxis Status: Acute Assessment and plan: Lovenox Decision-making: This patient has a moderate to severe risk of worsening in spite of being on appropriate treatment due to the chronic nature of underlying bronchiectasis 6 - Subjective Interval history: Patient resting comfortably in bed. Patient denies any new complaints or shortness of breath. Patient inquiring about discharge plan. is at bedside. - Constitutional Vitals: Temp Pulse Resp BP Pulse Ox 97.5 F L 78 18 129/64 95 12/28/16 08:08 12/28/16 08:08 12/28/16 08:08 12/28/16 08:08 12/28/16 08:27 General appearance: Present: A&O X 3, pleasant, answers questions appropriately - Head Head exam: Present: atraumatic, normocephalic - Eye Eye exam: Present: PERRL, conjuntiva pink, sclera anicteric Pupils: Present: PERRL - Neck Neck exam general surgery: Present: supple, trachea midline. Absent: lymphadenopathy - Respiratory Respiratory exam: Present: CTAB. Absent: accessory muscle use, rales, rhonchi, wheezes - Cardiovascular Cardiovascular exam: Present: RRR, +S1, +S2. Absent: diastolic murmur, gallop, rubs, systolic murmur - GI/Abdominal GI/Abdominal exam: Present: normal bowel sounds, soft, no peritoneal signs. Absent: distended, tenderness - Extremities Exam Extremities exam: Present: warm, radial pulses palpable and symetrical. Absent : calf tenderness, cyanotic, pedal edema - Neurological Exam Neurological exam: Present: CN II-XII intact, oriented X3, no focal deficits. Absent: pronater drift, facial droop, speech deficit - Skin Skin exam: Present: dry, intact Internal Medicine: Result - Labs CBC & Chem 7: 12/28/16 03:40 12/28/16 03:40 Labs: Short CBC 12/28/16 Range/Units 03:40 WBC 8.1 (4.3-11.1) K/mcL Hgb 8.3 L (12.9-16.9) g/dL Hct 27.7 L (37.5-50.1) % Plt Count 409 H (140-400) K/mcL Neutrophils # 5.2 (1.6-8.9) K/mcL BMP 12/28/16 03:40 Sodium 137 Potassium 4.2 Chloride 100 Carbon Dioxide 29 BUN 13 Creatinine 0.78 Glucose 102 H Calcium 8.9 Liver Function 12/28/16 Range/Units 03:40 Total Bilirubin 0.2 (0.2-1.2) mg/dL AST 18 (5-34) Units/L ALT 10 (0-55) Units/L Alkaline Phosphatase 55 (38-126) Units/L Albumin 2.9 L (3.5-5.0) g/dL - ABG Interpretation ABG results: PT/INR, D-dimer PT 13.7 Seconds (9.4-12.1) H 12/25/16 14:36 Consult Discharge Plan - Plan Instructions: Chronic Obstructive Pulmonary Disease (DC), Chronic Hypertension (DC), Pneumonia (DC) Additional Instructions: Plan d/c to home with IV Cefepime 2g q8hr. Follow up with Dr. Ferguson in 2 weeks. Referrals: Rocio Cervantes CNP [Primary Care Provider] - Prescriptions: Cefepime HCl/Dextrose, Iso-Osm [Cefepime 2 gm Injection] 2 gm IV Q8HR 28 Days <Terry Martinez - Last Filed: 12/28/16 18:04> Date of Encounter: 12/28/16 - Assessment and plan (1) Pneumonia Status: Acute Qualifiers: Qualified Code(s): J14 - Pneumonia due to Hemophilus influenzae (2) Respiratory failure with hypoxia Status: Acute Qualifiers: Qualified Code(s): J96.21 - Acute and chronic respiratory failure with hypoxia (3) CAD (coronary artery disease) Status: Chronic Qualifiers: Qualified Code(s): I25.10 - Atherosclerotic heart disease of [place] coronary artery without angina pectoris (4) Hypertension Status: Chronic Qualifiers: Qualified Code(s): I10 - Essential (primary) hypertension (5) DVT prophylaxis Status: Acute - Constitutional Vitals: Temp Pulse Resp BP Pulse Ox 97.4 F L 81 18 98/65 94 12/28/16 11:40 12/28/16 11:40 12/28/16 15:54 12/28/16 11:40 12/28/16 15:54 Internal Medicine: Result - Labs CBC & Chem 7: 12/28/16 03:40 12/28/16 03:40 Labs: Short CBC 12/28/16 Range/Units 03:40 WBC 8.1 (4.3-11.1) K/mcL Hgb 8.3 L (12.9-16.9) g/dL Hct 27.7 L (37.5-50.1) % Plt Count 409 H (140-400) K/mcL Neutrophils # 5.2 (1.6-8.9) K/mcL BMP 12/28/16 03:40 Sodium 137 Potassium 4.2 Chloride 100 Carbon Dioxide 29 BUN 13 Creatinine 0.78 Glucose 102 H Calcium 8.9 Liver Function 12/28/16 Range/Units 03:40 Total Bilirubin 0.2 (0.2-1.2) mg/dL AST 18 (5-34) Units/L ALT 10 (0-55) Units/L Alkaline Phosphatase 55 (38-126) Units/L Albumin 2.9 L (3.5-5.0) g/dL - ABG Interpretation ABG results: PT/INR, D-dimer PT 13.7 Seconds (9.4-12.1) H 12/25/16 14:36 - Attending Attestation I examined this patient and my medical decision-making was reviewed with the CUFF SETTER LOCKSTITCH/PA/Advanced Practice Nurse/Resident Physician. I agree with the documented findings, disposition and treatment plan as described except to the extent set forth below.
--- NOTE | 2016-12-28 09:47 | Electrocardiograph Report ---
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
[2016-12-28] MEDS: Budesonide/Formoterol 160/4.5 MDI IH SCH (10:28)
[2016-12-28 11:44] VITALS: BP 98/65
--- NOTE | 2016-12-28 14:28 | Discharge Summary ---
<Ortiz Alamo - Last Filed: 12/28/16 17:57> Date of Encounter: 12/28/16 Time of Encounter: 14:16 - Discharge Diagnosis (1) Pneumonia Priority: Primary Status: Acute Qualifiers: Pneumonia type: due to Haemophilus influenzae Laterality: unspecified laterality Lung location: unspecified part of lung Qualified Code(s): J14 - Pneumonia due to Hemophilus influenzae (2) Respiratory failure with hypoxia Priority: Primary Status: Acute Qualifiers: Chronicity: acute on chronic Qualified Code(s): J96.21 - Acute and chronic respiratory failure with hypoxia (3) Hypertension Priority: Secondary Status: Chronic Qualifiers: Hypertension type: essential hypertension Qualified Code(s): I10 - Essential (primary) hypertension (4) CAD (coronary artery disease) Priority: Secondary Status: Chronic Qualifiers: Coronary Disease-Associated Artery/Lesion type: [place] artery [place] vs. transplanted heart: [place] heart Associated angina: without angina Qualified Code(s): I25.10 - Atherosclerotic heart disease of [place] coronary artery without angina pectoris (5) DVT prophylaxis Priority: Secondary Status: Acute - Discharge Medications Prescriptions: Cefepime HCl/Dextrose, Iso-Osm [Cefepime 2 gm Injection] 2 gm IV Q8HR 28 Days Home Medications: Metoprolol XL (24 HR) Succ [Toprol Xl] 12.5 mg PO DAILY 02/04/15 [History] Niacin (24 HR) [Niaspan] 500 mg PO HS 02/04/15 [History] Albuterol Neb [Proventil Neb] 2.5 mg IH PRN PRN 12/31/15 [History] Albuterol Sulfate [Proair Hfa] 2 puff IH Q4H PRN 12/31/15 [History] Aspirin Enteric Coated [Aspirin EC] 81 mg PO DAILY 12/31/15 [History] Budesonide/Formoterol 160/4.5 [Symbicort 160/4.5] 2 puff IH BID PRN 12/31/15 [ History] Lansoprazole [Prevacid] 30 mg PO DAILY 12/31/15 [History] [place]-3/Dha/Epa/Fish Oil [Fish Oil 1,000 mg Softgel] 1,000 mg PO DAILY 03/11/16 [History] Ranitidine HCl [Heartburn Relief] 150 mg PO PRN PRN 03/11/16 [History] Acetylcysteine [H-Pxzdwm-j-Cysteine] 600 mg PO TID 12/25/16 [History] Azelastine 0.1% Nasal [place] [Astelin] 1 spr NS BID 12/25/16 [History] Oxygen 2 - 4 l NS AD 12/25/16 [History] Testosterone Cypionate [Depo-Testosterone] 200 mg IM Q10D 12/25/16 [History] Acetaminophen [Tylenol] 650 mg PO Q6HR PRN #0 tablet 12/28/16 [Rx] Cefepime HCl/Dextrose, Iso-Osm [Cefepime 2 gm Injection] 2 gm IV Q8HR 28 Days [Rx] Famotidine [Pepcid] 20 mg PO BID PRN #0 tablet 12/28/16 [Rx] GuaiFENesin ER [Mucinex] 600 mg PO BID tbbp.12hr 12/28/16 [Rx] Ipratropium/Albuterol Neb [Duoneb] 3 ml IH QIDR inhsol 12/28/16 [Rx] Allergies/Adverse Reactions: Allergies levofloxacin [From Levaquin] Adverse Reaction (Verified 12/25/16 16:30) Rash ondansetron [From Zofran (as hydrochloride)] Adverse Reaction (Verified 16:30) Hives Penicillins Adverse Reaction (Verified 12/25/16 16:30) Rash Date of admission: 12/25/16 16:42 Primary care physician: Rocio Cervantes CNP Consults: 12/25/16 17:10 Consult to Infectious Diseases [CONS] Routine Consulting Provider: [facility] Reason for Consult: Pseudomonas and Haemophilus pneumonia Time Notified: 17:10 Call Completed: No Discharging clinician: Terry Martinez Anticipated date of discharge: 12/28/16 - Patient Status Disposition: Home Health Service Condition: Good - Ambulatory Orders Ambulatory Orders: Basic Metabolic Panel [CHEM] Time Frame: 1 Week, Location: Any location Complete Blood Count [HEME] Time Frame: 1 Week, Location: Any location - Discharge Instructions Instructions: Chronic Obstructive Pulmonary Disease (DC), Chronic Hypertension (DC), Pneumonia (DC) Follow Up With: Rocio Cervantes CNP [Primary Care Provider] - Additional Instructions: Plan d/c to home with IV Cefepime 2g q8hr. Follow up with Dr. Ferguson in 2 weeks. Hospital course: Mr. Small is a 76 year old male with a PMH of multiple exacerbations of bronchiectasis, recurrent pneumonia, hypertension, hyperlipidemia, and coronary artery disease presented with cough, brown sputum production, fever, and chills. Prior sputum cultures grew E coli, Pseudomonas, H. influenza. Patient was recently admitted and received IV antibiotics. Patient has right arm PICC line in place. Patient's lungs initially had coarse rhonchi and occasional expiratory wheeze. MAXIMUM TEMPERATURE was 101.1 Fahrenheit during hospital stay. Patient report feeling much better during hospital course after started on IV cefepime and evaluated by ID, Dr. Ferguson. Patient instructed to follow up outpatient with ID in 2 weeks, weekly CBC & CMPs, and continue IV cefepime every 8 hours. Time spent discussing smoking cessation with patient: 3 to 10 minutes - Time Spent with Patient Total time spent providing and/or coordinating discharge services: - Constitutional Vitals: Temp Pulse Resp BP Pulse Ox 97.4 F L 81 18 98/65 93 12/28/16 11:40 12/28/16 11:40 12/28/16 11:40 12/28/16 11:40 12/28/16 11:40 General appearance: Present: A&O X 3, pleasant, answers questions appropriately - Head Head exam: Present: atraumatic, normocephalic - Eye Eye exam: Present: PERRL, conjuntiva pink, sclera anicteric Pupils: Present: PERRL - Neck Neck exam general surgery: Present: supple, trachea midline. Absent: lymphadenopathy - Respiratory Respiratory exam: Present: CTAB. Absent: accessory muscle use, rales, rhonchi, wheezes - Cardiovascular Cardiovascular exam: Present: RRR, +S1, +S2. Absent: diastolic murmur, gallop, rubs, systolic murmur - GI/Abdominal GI/Abdominal exam: Present: normal bowel sounds, soft, no peritoneal signs. Absent: distended, tenderness - Extremities Exam Extremities exam: Present: warm, radial pulses palpable and symetrical. Absent : calf tenderness, cyanotic, pedal edema Additional comments: Right arm PICC line in place - Neurological Exam Neurological exam: Present: CN II-XII intact, oriented X3, no focal deficits. Absent: pronater drift, facial droop, speech deficit - Skin Skin exam: Present: dry, intact <Michelle,Terry P - Last Filed: 12/28/16 18:23> Date of Encounter: 12/28/16 - Discharge Diagnosis (1) Pneumonia Status: Acute Qualifiers: Pneumonia type: due to Haemophilus influenzae Laterality: unspecified laterality Lung location: unspecified part of lung Qualified Code(s): J14 - Pneumonia due to Hemophilus influenzae (2) Respiratory failure with hypoxia Status: Acute Qualifiers: Chronicity: acute on chronic Qualified Code(s): J96.21 - Acute and chronic respiratory failure with hypoxia (3) CAD (coronary artery disease) Status: Chronic Qualifiers: Coronary Disease-Associated Artery/Lesion type: [place] artery [place] vs. transplanted heart: [place] heart Associated angina: without angina Qualified Code(s): I25.10 - Atherosclerotic heart disease of [place] coronary artery without angina pectoris (4) Hypertension Status: Chronic Qualifiers: Hypertension type: essential hypertension Qualified Code(s): I10 - Essential (primary) hypertension (5) DVT prophylaxis Status: Acute Date of admission: 12/25/16 16:42 Primary care physician: Rocio Cervantes CNP Consults: 12/25/16 17:10 Consult to Infectious Diseases [CONS] Routine Consulting Provider: [facility] Reason for Consult: Pseudomonas and Haemophilus pneumonia Time Notified: 17:10 Call Completed: No Hospital course: Mr. Small is a 76 year old male - Time Spent with Patient Total time spent providing and/or coordinating discharge services: - Constitutional Vitals: Temp Pulse Resp BP Pulse Ox 97.4 F L 81 18 98/65 94 12/28/16 11:40 12/28/16 11:40 12/28/16 15:54 12/28/16 11:40 12/28/16 15:54 - Attending Attestation I examined this patient and my medical decision-making was reviewed with the LAB SCIENTIST/PA/Advanced Practice Nurse/Resident Physician. I agree with the documented findings, disposition and treatment plan as described except to the extent set forth below. Infectious disease input appreciated. Patient will follow with primary care provider. Patient will follow with infectious disease specialist. Patient will follow-up with pulmonology.
--- NOTE | 2016-12-28 15:21 | Infectious Disease Consult ---
Date of Encounter: 12/28/16 Time of Encounter: 15:19 Assessment and Plan (1) Bronchiectasis Status: Acute Assessment and plan: Diagnosed a few years back Has been having recurrent infection in the last year with multiple courses of antibiotics Recently was treated by my nurse practitioner with Rocephin for Escherichia coli in the sputum Most recent culture done a week ago was positive for Pseudomonas and Haemophilus influenza Patient had associated worsening cough worsening dyspnea worsening sputum production fevers and chills at home Patient was instructed to come to the ED for evaluation We'll start on empiric cefepime which covers both a Haemophilus influenza and the Pseudomonas Duration of treatment at least 2 weeks may be more maybe 4 weeks because he has recurrence every so often. Patient needs to have CBC and a BMP checked weekly while on cefepime Return to clinic in 2 weeks We are giving him cefepime 2 g IV every 8 hours. All questions that patient and his had were answered, all concerns were addressed. I recommended pulmonary to evaluate to give further recommendations on pulmonary toileting and using the nebulizer and Mucomyst among other but family declined. Qualifiers: Bronchiectasis type: with acute exacerbation Qualified Code(s): J47.1 - Bronchiectasis with (acute) exacerbation (2) Cough Status: Acute (3) Shortness of breath Status: Acute (4) Pneumonia Status: Acute Qualifiers: Pneumonia type: due to Haemophilus influenzae Laterality: unspecified laterality Lung location: unspecified part of lung Qualified Code(s): J14 - Pneumonia due to Hemophilus influenzae (5) Sepsis Status: Acute Assessment and plan: Patient had 2 sets criteria on admission. Secondary to bronchiectasis/pneumonia Qualifiers: Sepsis type: sepsis due to unspecified organism Qualified Code(s): A41.9 - Sepsis, unspecified organism Infectious Disease HPI - Data of Consult Patient: new to practice Consult date: 12/28/16 Requesting Physician: Terry Martinez MD Primary Care Provider: Rocio Cervantes CNP - Consult Narrative Reason for consult: pneumonia and sepsis History of present illness: Mr. Small is a 76 year old male Patient is 76-year-old gentleman who was admitted to [facility] for exacerbation of bronchiectasis on 12/25/16, we are consulted on for antibiotic recommendations. Patient is a 76-year-old gentleman with past medical history mentioned below who has long-standing bronchiectasis with multiple acute exacerbations in the last year has been on multiple antibiotic courses IV and by mouth was also seen by my nurse practitioner earlier this month for Escherichia coli pneumonia and was treated with IV Rocephin. Patient was having exacerbation and had a sputum culture obtained and was positive for Haemophilus influenza and pseudomonas that was resistant to fluoroquinolones. Patients called stated that the patient is having more cough has a fever and shortness of breath and chills at home and clinically worse. We recommended the patient goes to the MRSA department to get admitted. Patient was admitted and started on cefepime. Since admission, patient has febrile with a MAXIMUM TEMPERATURE of 101.1 Fahrenheit. His presenting WBC was 8.6 thousand and his been having episodes of tachycardia with a heart rate in the 90s. An x-ray was done on 12/25/2016 which reads interstitial and airspace opacity is reidentified at the lung bases, not significantly changed when compared to recent prior exam. Superimposed pneumonia on the background of the chronic interstitial disease should be considered. Patient tells me today that he is feeling much better since being here. His breathing has improved and his fever has subsided. Patient is very eager to go home. CC: Terry Martinez MD Past Med Surg Social Fam HX - Past Medical History Medical history: COPD, coronary artery disease, GERD, hyperlipidemia, hypertension, myocardial infarction Psychiatric history: no psych history - Past Surgical History Surgical History: angioplasty/stent, other - Social History Smoking Status: Never smoker Smokeless Tobacco Status: No Alcohol use: none Drug use: none - Family History Mother Living Status: Hx Family Respiratory Disorders: Yes (lung cancer) Hx Family Cancer: Yes (lung) Father Adopted: No Family Member Ethnicity: Non- Living Status: Hx Family Cardiac Disorders: Yes (Heart attack, htn) Hx Family Respiratory Disorders: No Hx Family Cancer: Yes Hx Family GI Disorders: No Hx Family Endocrine Disorder: Yes Hx Family Neuromuscular Disorders: No Hx Family Neurologic Disorders: No Hx Family HEENT Disorders: No Hx Family Autoimmune Disorders: Yes Brother Hx Family Cancer: Yes (Leukemia) Infectious Disease-CN:Meds Metoprolol XL (24 HR) Succ [Toprol Xl] 12.5 mg PO DAILY 02/04/15 [History] Niacin (24 HR) [Niaspan] 500 mg PO HS 02/04/15 [History] Albuterol Neb [Proventil Neb] 2.5 mg IH PRN PRN 12/31/15 [History] Albuterol Sulfate [Proair Hfa] 2 puff IH Q4H PRN 12/31/15 [History] Aspirin Enteric Coated [Aspirin EC] 81 mg PO DAILY 12/31/15 [History] Budesonide/Formoterol 160/4.5 [Symbicort 160/4.5] 2 puff IH BID PRN 12/31/15 [ History] Lansoprazole [Prevacid] 30 mg PO DAILY 12/31/15 [History] [place]-3/Dha/Epa/Fish Oil [Fish Oil 1,000 mg Softgel] 1,000 mg PO DAILY 03/11/16 [History] Ranitidine HCl [Heartburn Relief] 150 mg PO PRN PRN 03/11/16 [History] Acetylcysteine [X-Donxxd-i-Cysteine] 600 mg PO TID 12/25/16 [History] Azelastine 0.1% Nasal [place] [Astelin] 1 spr NS BID 12/25/16 [History] Oxygen 2 - 4 l NS AD 12/25/16 [History] Testosterone Cypionate [Depo-Testosterone] 200 mg IM Q10D 12/25/16 [History] Acetaminophen [Tylenol] 650 mg PO Q6HR PRN #0 tablet 12/28/16 [Rx] Cefepime HCl/Dextrose, Iso-Osm [Cefepime 2 gm Injection] 2 gm IV Q8HR 28 Days [Rx] Famotidine [Pepcid] 20 mg PO BID PRN #0 tablet 12/28/16 [Rx] GuaiFENesin ER [Mucinex] 600 mg PO BID tbbp.12hr 12/28/16 [Rx] Ipratropium/Albuterol Neb [Duoneb] 3 ml IH QIDR inhsol 12/28/16 [Rx] Allergies levofloxacin [From Levaquin] Adverse Reaction (Verified 12/25/16 16:30) Rash ondansetron [From Zofran (as hydrochloride)] Adverse Reaction (Verified 16:30) Hives Penicillins Adverse Reaction (Verified 12/25/16 16:30) Rash Review of systems: 10 point review of systems done, negative other for what mentioned in history of present illness Exam - Constitutional Vitals: Temp Pulse Resp BP Pulse Ox 97.4 F L 81 18 98/65 93 12/28/16 11:40 12/28/16 11:40 12/28/16 11:40 12/28/16 11:40 12/28/16 11:40 General appearance: no acute distress, no febrile - Head Head exam: Present: atraumatic, normocephalic - Eye Eye exam: Present: EOMI, PERRL, sclera anicteric - ENT ENT exam: Present: mucous membranes dry Additional comments: No oral lesions - Neck Neck exam: Present: full ROM. Absent: meningismus - Respiratory Additional comments: Decreased breath sounds at the bases bilaterally. Some rhonchi noted no wheezing - Cardiovascular Cardiovascular exam: Present: RRR, +S1, +S2 - GI/Abdominal GI/Abdominal exam: Present: normal bowel sounds, soft. Absent: tenderness - Extremities Exam Extremities exam: Present: normal inspection. Absent: tenderness - Back Exam Back exam: Absent: vertebral tenderness - Neurological Exam Neurological exam: Present: alert, oriented X3. Absent: speech deficit - Skin Skin exam: Absent: rash Infectious Disease CN: Results - Labs CBC & Chem 7: 12/28/16 03:40 12/28/16 03:40 Consult Discharge Plan - Plan Instructions: Chronic Obstructive Pulmonary Disease (DC), Chronic Hypertension (DC), Pneumonia (DC) Additional Instructions: Plan d/c to home with IV Cefepime 2g q8hr. Follow up with Dr. Ferguson in 2 weeks. Referrals: Rocio Cervantes CNP [Primary Care Provider] - Prescriptions: Cefepime HCl/Dextrose, Iso-Osm [Cefepime 2 gm Injection] 2 gm IV Q8HR 28 Days
--- NOTE | 2016-12-28 15:38 | Physician Discharge Referral ---
Addendum entered and electronically signed by Ortiz Alamo DO 12/28/16 16:16: Home care orders: nursing services. Original Note: <Ortiz Almao - Last Filed: 12/28/16 15:43> Home Health/Hosp Referral Info Transfer to: Home Health Provider in Charge Post Discharge: PCP - Diagnosis (1) Pneumonia Status: Acute (2) CAD (coronary artery disease) Status: Chronic (3) Hypertension Status: Chronic (4) Respiratory failure with hypoxia Status: Acute (5) DVT prophylaxis Status: Acute - Respiratory Orders Smoking Cessation: Smoking cessation has been advised. For more information, call the [place] Tobacco Quit Line at 9-621-MUEV-NOW. - Diet/Nutrition Diet/Nutrition Orders: Cardiac - Activity Activity Orders: Up ad isaura - Services Needed Following services are medically necessary services: Home Infusion Home Care Orders: Cefepime 2g IV q8h Other Treatments: Weekly CMP and CBC. results to be sent to PCP - Transfer Medications Prescriptions: Cefepime HCl/Dextrose, Iso-Osm [Cefepime 2 gm Injection] 2 gm IV Q8HR 28 Days Home Medications: Metoprolol XL (24 HR) Succ [Toprol Xl] 12.5 mg PO DAILY 02/04/15 [History] Niacin (24 HR) [Niaspan] 500 mg PO HS 02/04/15 [History] Albuterol Neb [Proventil Neb] 2.5 mg IH PRN PRN 12/31/15 [History] Albuterol Sulfate [Proair Hfa] 2 puff IH Q4H PRN 12/31/15 [History] Aspirin Enteric Coated [Aspirin EC] 81 mg PO DAILY 12/31/15 [History] Budesonide/Formoterol 160/4.5 [Symbicort 160/4.5] 2 puff IH BID PRN 12/31/15 [ History] Lansoprazole [Prevacid] 30 mg PO DAILY 12/31/15 [History] [place]-3/Dha/Epa/Fish Oil [Fish Oil 1,000 mg Softgel] 1,000 mg PO DAILY 03/11/16 [History] Ranitidine HCl [Heartburn Relief] 150 mg PO PRN PRN 03/11/16 [History] Acetylcysteine [X-[place]-j-Cysteine] 600 mg PO TID 12/25/16 [History] Azelastine 0.1% Nasal [place] [Astelin] 1 spr NS BID 12/25/16 [History] Oxygen 2 - 4 l NS AD 12/25/16 [History] Testosterone Cypionate [Depo-Testosterone] 200 mg IM Q10D 12/25/16 [History] Acetaminophen [Tylenol] 650 mg PO Q6HR PRN #0 tablet 12/28/16 [Rx] Cefepime HCl/Dextrose, Iso-Osm [Cefepime 2 gm Injection] 2 gm IV Q8HR 28 Days [Rx] Famotidine [Pepcid] 20 mg PO BID PRN #0 tablet 12/28/16 [Rx] GuaiFENesin ER [Mucinex] 600 mg PO BID tbbp.12hr 12/28/16 [Rx] Ipratropium/Albuterol Neb [Duoneb] 3 ml IH QIDR inhsol 12/28/16 [Rx] Allergies/Adverse Reactions: Allergies levofloxacin [From Levaquin] Adverse Reaction (Verified 12/25/16 16:30) Rash ondansetron [From Zofran (as hydrochloride)] Adverse Reaction (Verified 16:30) Hives Penicillins Adverse Reaction (Verified 12/25/16 16:30) Rash Certification: Further, I certify that my clinical findings support that this patient is homebound (i.e. absences from home require considerable and taxing effort and are for medical reasons or uatsdin services or infrequently or short duration when for other reasons) because: Homebound Reason: Severity of cardiac or pulmonary status limits activity tolerance Attestation: My signature below is to certify that this patient is under my care and that I, or nurse practitioner, or a physician's curatorial assistant working with me, has a face-to -face encounter with this patient. <Terry Martinez P - Last Filed: 12/28/16 18:04> - Diagnosis (1) Pneumonia Status: Acute (2) Respiratory failure with hypoxia Status: Acute (3) CAD (coronary artery disease) Status: Chronic (4) Hypertension Status: Chronic (5) DVT prophylaxis Status: Acute - Respiratory Orders Smoking Cessation: Smoking cessation has been advised. For more information, call the [place] Tobacco Quit Line at 9-419-UWIU-NOW. Certification: Further, I certify that my clinical findings support that this patient is homebound (i.e. absences from home require considerable and taxing effort and are for medical reasons or uatsdin services or infrequently or short duration when for other reasons) because: Attestation: My signature below is to certify that this patient is under my care and that I, or nurse practitioner, or a physician's curatorial assistant working with me, has a face-to -face encounter with this patient.
== END 2016-12-28 17:22 | disposition home health service (06) | DRG 190 ==
LOC: EMEROO 13:04 → 2NENU 13:04
PROVIDERS: ADMIT Internal Medicine; ATTEND Internal Medicine

== ENCOUNTER 2017-08-31 08:29 | Inpatient (IN) ==
[2017-08-31] MEDS ORDERED: 0.9 % Sodium Chloride 1,000 ML IVC ONE (08:41)
[2017-08-31] MEDS ORDERED: Pantoprazole 40 MG VIAL IVP ONE (08:47)
--- NOTE | 2017-08-31 09:06 | Emergency Department Note ---
Disposition Clinical Impression: GI bleeding Qualifiers: GI bleed type/associated pathology: unspecified gastrointestinal hemorrhage type Qualified Code(s): K92.2 - Gastrointestinal hemorrhage, unspecified Disposition: Admitted As Inpatient Condition: Fair Referrals: Rocio Cervantes CNP [Primary Care Provider] - Forms: ED Satisfaction Letter GI Bleed HPI - General Chief complaint: ED GI Bleed Stated complaint: rectal bleeding Time Seen by Provider: 08/31/17 08:40 Source: patient Limitations: no limitations Nursing Notes Reviewed: Yes Vital Signs Reviewed: Yes - History of Present Illness HPI Narrative: 77 year old male with history of CT with two stents, COPD, diverticulitis presents with bloody stool. Pt reported multiple episodes of bloody stool since 9 oclock last night. The blood was bright red and mixed with stool. Associate with abdominal pain and mild nausea. No vomiting. No chill and fever. Pt had similar symptoms 3 to 4 years ago with diagnosis of Diverticulitis. pt denied history of hemorrhoids. Pt reported felt light headache in ER. pt denied chest pain. But reported mild shortness of breath. Pt Subjective Complaint: blood streaked stool Onset (ago): hour(s) (12) Number of episodes: 15 Consistency: constant Severity: severe Improves with: nothing Context: history of GI bleed Associated symptoms: Reports: abdominal pain, nausea - Related Data Home Medications Medication Instructions Recorded Confirmed Metoprolol XL (24 HR) Succ [Toprol 12.5 mg PO DAILY 02/04/15 08/31/17 Xl] Niacin (24 HR) [Niaspan] 500 mg PO HS 02/04/15 08/31/17 Albuterol Sulfate [Proair Hfa] 2 puff IH Q4H PRN 12/31/15 08/31/17 Aspirin Enteric Coated [Aspirin EC] 81 mg PO DAILY 12/31/15 08/31/17 Lansoprazole [Prevacid] 30 mg PO DAILY 12/31/15 08/31/17 [place]-3/Dha/Epa/Fish Oil [Fish Oil 1,000 mg PO DAILY 03/11/16 08/31/17 1,000 mg Softgel] Oxygen 2 - 4 l NS AD 12/25/16 08/31/17 Testosterone Cypionate 200 mg IM Q14D 12/25/16 08/31/17 [Depo-Testosterone] Cholecalciferol (D-3) [Vitamin D] 1,000 unit PO DAILY 05/11/17 08/31/17 Budesonide/Formoterol 160/4.5 2 puff IH BIDR 08/31/17 08/31/17 [Symbicort 160/4.5] Cefdinir [Omnicef] 300 mg PO BID 08/31/17 08/31/17 Previous Rx's Medication Instructions Recorded Acetaminophen [Tylenol] 650 mg PO Q6HR PRN #0 tablet 12/28/16 Ipratropium/Albuterol Neb [Duoneb] 3 ml IH QIDR inhsol 12/28/16 Allergies Allergy/AdvReac Type Severity Reaction Status Date / Time levofloxacin [From Levaquin] Allergy Rash Verified 08/31/17 08:36 ondansetron Allergy Hives Verified 08/31/17 08:36 [From Zofran (as hydrochloride)] Penicillins AdvReac Rash Verified 08/31/17 08:36 Constitutional: Reports: weakness. Denies: fever, chills Eyes: Denies: eye pain, eye discharge, vision change ENT ED: Denies: ear pain, throat pain, dental pain Cardiovascular: Denies: chest pain, palpitations, dyspnea on exertion Respiratory: Reports: dyspnea. Denies: cough, wheezes Gastrointestinal: Reports: abdominal pain, nausea, hematemesis, hematochezia. Denies: vomiting Genitourinary: Denies: urgency, dysuria, frequency, hematuria Musculoskeletal: Denies: back pain, neck pain, joint swelling Integumentary: Denies: rash, abrasion, lesions Neurological: Reports: weakness (generalized). Denies: headache, numbness Psychiatric: Denies: anxiety, depression, suicidal thoughts Endocrine: Reports: fatigue. Denies: heat or cold intolerance Hematological/Lymphatic: Denies: easy bleeding, easy bruising Allergic/Immunologic: Denies: facial swelling, urticaria Past Medical History - Past Medical History Medical history: Reports: COPD, coronary artery disease, GERD, hyperlipidemia, hypertension, myocardial infarction, other (diverticulitis and GI bleeding) Surgical history: Reports: angioplasty/stent, herniorrhaphy, other Psychiatric history: Reports: no psych history - Social History Smoking Status: Never smoker Smokeless Tobacco Status: No Alcohol use: Reports: none Drug use: Reports: none Physical Exam - General Limitations: no limitations General appearance: alert, in no apparent distress - Head Head exam: atraumatic, normal inspection - Eye Eye exam: Present: other (pale looking). Absent: scleral icterus, conjunctival injection - ENT ENT exam: normal exam - Neck Neck exam: Present: normal inspection, full ROM, trachea midline. Absent: tenderness - Chest Chest inspection: Present: normal inspection, symmetric chest wall rise. Absent : tenderness - Respiratory Respiratory exam: Present: normal lung sounds bilaterally. Absent: respiratory distress, wheezes - Cardiovascular Cardiovascular exam: Present: regular rate, normal rhythm - Abdominal Exam Abdominal exam: Present: soft, tenderness (generalized tender in whole abdomen) - Extremities Exam Extremities exam: Present: normal inspection, full ROM. Absent: tenderness - Back Exam Back exam: Present: normal inspection, full ROM. Absent: tenderness - Neurological Exam Neurological exam: Present: alert, oriented X3 - Psychiatric Psychiatric exam: Present: normal affect, normal mood - Skin Skin exam: Present: warm, dry, pallor Course Vital Signs Temperature 97.4 F L 08/31/17 08:33 Pulse Rate 86 08/31/17 08:33 Respiratory Rate 18 08/31/17 08:33 Blood Pressure 97/62 08/31/17 08:33 O2 Sat by Pulse Oximetry 100 08/31/17 08:33 Temperature 97.4 F L 08/31/17 08:33 Pulse Rate 71 08/31/17 10:33 Respiratory Rate 16 08/31/17 09:47 Blood Pressure 124/75 08/31/17 10:33 O2 Sat by Pulse Oximetry 98 08/31/17 10:33 Oxygen Delivery Oxygen Delivery Nasal Cannula GI Bleed - [facility] Narrative Medical decision making narrative: 77 year old male with history of CT, hypertension, COPD, diverticulosis, GI bleeding presents with acute GI bleeding. It started around 9 pm yesterday. It was bright red blood mixed with stool at least 15 episodes since. Associate with mild abdominal pain and nausea. No chest pain, mild shortness of breath. physical exam: diffuse abdominal tender, no rebound tenderness, rectal exam, no external hemorrhoids noted, bloody stool on glove, Guiac test positive. Pt reported last time Endoscopy and colonoscopy was 3 years ago. Labs: elevated CRP, ESR, hemoglobin 9.3 (dropping from 11 two months ago). pt has stable vitals. Abdomen CT ruled out perforation and other surgical problems, diffuse diverticulosis. impression: GI bleeding. Plan: admit for further evaluation 11:10 am speak with hospitalist, pt is accepted admission with GI consult - Lab Data Lab results reviewed: Yes I reviewed the patient's lab results. Result diagrams: 08/31/17 09:00 08/31/17 09:00 Lab Results 08/31/17 08/31/17 08/31/17 Range/Units 09:00 09:00 09:00 WBC 8.6 (4.3-11.1) K/mcL RBC 3.85 L (4.19-5.50) M/mcL Hgb 9.3 L (12.9-16.9) g/dL Hct 31.0 L (37.5-50.1) % MCV 80.5 L (83.0-100.0) fL MCH 24.2 L (28.0-33.3) pg MCHC 30.0 L (31.6-35.5) g/dL RDW 19.2 H (11.5-14.5) % Plt Count 292 (140-400) K/mcL MPV 8.9 L (9.4-12.4) fL Immature Gran % 0.3 (0-4) % Seg Neutrophils % 67.8 % Lymphocytes % 21.8 % Monocytes % 5.9 % Eosinophils % 3.6 % Basophils % 0.6 % Neutrophils # 5.8 (1.6-8.9) K/mcL Lymphocytes # 1.9 (0.6-4.6) K/mcL Monocytes # 0.5 (0.0-1.3) K/mcL Eosinophils # 0.3 (0.0-0.6) K/mcL Basophils # 0.1 (0.0-0.2) K/mcL ESR 43 H (0-10) mm/hr Sodium 136 (136-145) mEq/L Potassium 4.2 (3.5-5.1) mEq/L Chloride 103 (98-107) mEq/L Carbon Dioxide 27 (23-29) mEq/L BUN 17 (8-23) mg/dL Creatinine 0.86 (0.70-1.30) mg/dL Est GFR ( Amer) > 60 (> 60) Est GFR (Non-Af Amer) > 60 (> 60) BUN/Creatinine Ratio 20 (6-26) Glucose 126 H (70-105) mg/dL Calculated Osmolality 285 (280-300) Lactic Acid (0.5-2.2) mmol/L Calcium 8.8 (8.6-10.3) mg/dL Total Bilirubin 0.5 (0.3-1.0) mg/dL Direct Bilirubin 0.1 (0.0-0.2) mg/dL Indirect Bilirubin 0.4 (0.0-1.2) mg/dL AST 10 L (13-39) Units/L ALT 5 L (7-52) Units/L Alkaline Phosphatase 74 (34-104) Units/L Troponin I (< 0.04) ng/mL C-Reactive Protein (Less than 10) mg/L Serum Total Protein 7.4 (6.4-8.9) g/dL Albumin 4.0 (3.5-5.7) g/dL Globulin 3.4 (2.4-3.5) g/dL Albumin/Globulin Ratio 1.2 (1.1-2.2) 08/31/17 08/31/17 Range/Units 09:00 09:52 WBC (4.3-11.1) K/mcL RBC (4.19-5.50) M/mcL Hgb (12.9-16.9) g/dL Hct (37.5-50.1) % MCV (83.0-100.0) fL MCH (28.0-33.3) pg MCHC (31.6-35.5) g/dL RDW (11.5-14.5) % Plt Count (140-400) K/mcL MPV (9.4-12.4) fL Immature Gran % (0-4) % Seg Neutrophils % % Lymphocytes % % Monocytes % % Eosinophils % % Basophils % % Neutrophils # (1.6-8.9) K/mcL Lymphocytes # (0.6-4.6) K/mcL Monocytes # (0.0-1.3) K/mcL Eosinophils # (0.0-0.6) K/mcL Basophils # (0.0-0.2) K/mcL ESR (0-10) mm/hr Sodium (136-145) mEq/L Potassium (3.5-5.1) mEq/L Chloride (98-107) mEq/L Carbon Dioxide (23-29) mEq/L BUN (8-23) mg/dL Creatinine (0.70-1.30) mg/dL Est GFR ( Amer) (> 60) Est GFR (Non-Af Amer) (> 60) BUN/Creatinine Ratio (6-26) Glucose (70-105) mg/dL Calculated Osmolality (280-300) Lactic Acid 0.8 (0.5-2.2) mmol/L Calcium (8.6-10.3) mg/dL Total Bilirubin (0.3-1.0) mg/dL Direct Bilirubin (0.0-0.2) mg/dL Indirect Bilirubin (0.0-1.2) mg/dL AST (13-39) Units/L ALT (7-52) Units/L Alkaline Phosphatase (34-104) Units/L Troponin I 0.04 H* (< 0.04) ng/mL C-Reactive Protein 14 H (Less than 10) mg/L Serum Total Protein (6.4-8.9) g/dL Albumin (3.5-5.7) g/dL Globulin (2.4-3.5) g/dL Albumin/Globulin Ratio (1.1-2.2) - Radiology Data Radiology results reviewed: Yes I reviewed the patient's radiology results.
[2017-08-31 09:20] LABS: Basophils # 0.1 K/mcL (0.0-0.2); Basophils % 0.6 %; Eosinophils # 0.3 K/mcL (0.0-0.6); Eosinophils % 3.6 %; Hemoglobin 9.3 g/dL (12.9-16.9); Immature Granulocytes % 0.3 % (0-4); Lymphocytes # 1.9 K/mcL (0.6-4.6); Lymphocytes % 21.8 %; Mean Corpuscular Hemoglobin 24.2 pg (28.0-33.3); Mean Corpuscular Volume 80.5 fL (83.0-100.0); Mean Platelet Volume 8.9 fL (9.4-12.4); Monocytes # 0.5 K/mcL (0.0-1.3); Monocytes % 5.9 %; Neutrophils # 5.8 K/mcL (1.6-8.9); Platelet Count 292 K/mcL (140-400); Red Blood Count 3.85 M/mcL (4.19-5.50); Red Cell Distribution Width 19.2 % (11.5-14.5); Segmented Neutrophils % 67.8 %
[2017-08-31 09:38] LABS: Alanine Aminotransferase 5 Units/L (7-52); Albumin/Globulin Ratio 1.2 (1.1-2.2); Alkaline Phosphatase 74 Units/L (34-104); Aspartate Amino Transferase 10 Units/L (13-39); BUN/Creatinine Ratio 20 (6-26); Bilirubin,Direct 0.1 mg/dL (0.0-0.2); Bilirubin,Indirect 0.4 mg/dL (0.0-1.2); Bilirubin,Total 0.5 mg/dL (0.3-1.0); Blood Urea Nitrogen 17 mg/dL (8-23); Calcium 8.8 mg/dL (8.6-10.3); Carbon Dioxide 27 mEq/L (23-29); Chloride 103 mEq/L (98-107); Globulin 3.4 g/dL (2.4-3.5); Glucose 126 mg/dL (70-105); Osmolality,Calculated 285 (280-300); Potassium 4.2 mEq/L (3.5-5.1); Sodium 136 mEq/L (136-145); Total Protein 7.4 g/dL (6.4-8.9); eGFR For African Americans > 60 (> 60); eGFR For Non-African Americans > 60 (> 60)
[2017-08-31 09:42] LABS: Troponin I 0.04 ng/mL (< 0.04)
--- NOTE | 2017-08-31 10:13 | Emergency Department Note ---
START Narrative - START START: For this encounter, I have reviewed the [employer] or PA documentation, treatment plan, and medical decision making; and I have had face to face time with this patient. 77 year old male presnets to the ED with complaitns of rectal bleeding and has a history of anemia secondary to GI bleeding and has been experingin increased bloody stools and now has a troponin of 0.04 without chest pain or shortness of breath. He does have a history of diverticulitis 3 years ago and is experincing abdominal pain. WE will do a ABCT to rule out perforated divetic and then admit to medicine in addition to tranfuse 1 unit at this time
[2017-08-31] MEDS ORDERED: Naloxone 0.4 MG/ML INJ IVP PRN (10:59)
[2017-08-31] MEDS ORDERED: *HR* Promethazine 25 MG/ML VIAL IVP PRN (10:59)
[2017-08-31] MEDS ORDERED: *HR* HYDROcodone/Acet 5/325 mg TABLET PO PRN (10:59)
[2017-08-31] MEDS ORDERED: Ondansetron 4 MG/2 ML VIAL IVP PRN (10:59)
[2017-08-31] MEDS ORDERED: Ipratropium/Albuterol Neb 3 ML IH PRN (11:04)
--- NOTE | 2017-08-31 12:14 | Internal Med History&Physical ---
Date of Encounter: 08/31/17 Time of Encounter: 11:30 Assessment and Plan (1) Bright red blood per rectum Current visit: Yes Status: Acute Admit the pt into Tele His BRBPR concerning for Internal hemorrhoids vs Diverticular bleeding Reviewed CT of Abd showed diverticulosis only.. no signs of infection however due to his severe GI bleed and lower abdominal pain, will start him on empirical abx IV Flgyl also will check for C. Diff too since he does take Abx on and off for his recurrent PNA Cont symptomatic and supportive care Pt does requested surgery Dr. Jamison consult for endoscopies so called Dr. Leiva (2) Acute blood loss anemia Current visit: Yes Status: Acute His Hb is 9.3 dropped down from 11.6 ( 08/02/17 ) Cont IV hydration Cont close monitoring of H/H Q6hr Transfuse PRBC PRN Surgery consulted for further eval (3) CAD (coronary artery disease) Current visit: No Status: Chronic Resumed all home meds Held ASA Qualifiers: Coronary Disease-Associated Artery/Lesion type: [place] artery [place] vs. transplanted heart: [place] heart Associated angina: without angina Qualified Code(s): I25.10 - Atherosclerotic heart disease of [place] coronary artery without angina pectoris (4) COPD (chronic obstructive pulmonary disease) Current visit: No Status: Chronic Not in exacerbation cont Duoneb + O2 Qualifiers: COPD type: unspecified COPD Qualified Code(s): J44.9 - Chronic obstructive pulmonary disease, unspecified (5) GERD (gastroesophageal reflux disease) Current visit: No Status: Chronic on PPI Qualifiers: Esophagitis presence: without esophagitis Qualified Code(s): K21.9 - Gastro -esophageal reflux disease without esophagitis (6) Hyperlipidemia Current visit: No Status: Chronic on Statin Qualifiers: Hyperlipidemia type: mixed hyperlipidemia Qualified Code(s): E78.2 - Mixed hyperlipidemia (7) Hypertension Current visit: No Status: Chronic Stable with home meds Qualifiers: Hypertension type: essential hypertension Qualified Code(s): I10 - Essential (primary) hypertension Internal Medicine - H&P: HPI Chief complaint: Bright red blood per rectum Admitted From: Emergency Dept Plans for Post Hospital Care: Home History of present illness: Mr. Small is a 77 year old male with past history of hypertension, hyperlipidemia, GERD, migraines, coronary disease with stent placement, chronic hypoxic respiratory failure, COPD and recurrent pneumonia with Escherichia coli currently on Omnicef who has recurrnet GI bleed now presented to ER with bright red blood per rectum and abdominal pain since last night. He had at least 10 BM's with bright red blood. He does have dull type pain, 5/10 in severity and non radiating abdominal pain. Denied any vomiting, however he does have nausea. Past Med Surg Social Fam HX - Past Medical History Medical history: COPD, coronary artery disease, GERD, hyperlipidemia, hypertension, myocardial infarction, other (diverticulitis and GI bleeding) Psychiatric history: no psych history - Past Surgical History Surgical History: angioplasty/stent, herniorrhaphy, other - Social History Smoking Status: Never smoker Smokeless Tobacco Status: No Alcohol use: none Drug use: none - Family History Mother Living Status: Hx Family Respiratory Disorders: Yes (lung cancer) Hx Family Cancer: Yes (lung) Father Adopted: No Family Member Ethnicity: Non- Living Status: Hx Family Cardiac Disorders: Yes (Heart attack, htn) Hx Family Respiratory Disorders: No Hx Family Cancer: Yes Hx Family GI Disorders: No Hx Family Endocrine Disorder: Yes Hx Family Neuromuscular Disorders: No Hx Family Neurologic Disorders: No Hx Family HEENT Disorders: No Hx Family Autoimmune Disorders: Yes Brother Hx Family Cancer: Yes (Leukemia) Internal Medicine - H&P: Meds Metoprolol XL (24 HR) Succ [Toprol Xl] 12.5 mg PO DAILY 02/04/15 [History] Niacin (24 HR) [Niaspan] 500 mg PO HS 02/04/15 [History] Albuterol Sulfate [Proair Hfa] 2 puff IH Q4H PRN 12/31/15 [History] Aspirin Enteric Coated [Aspirin EC] 81 mg PO DAILY 12/31/15 [History] Lansoprazole [Prevacid] 30 mg PO DAILY 12/31/15 [History] [place]-3/Dha/Epa/Fish Oil [Fish Oil 1,000 mg Softgel] 1,000 mg PO DAILY 03/11/16 [History] Oxygen 2 - 4 l NS AD 12/25/16 [History] Testosterone Cypionate [Depo-Testosterone] 200 mg IM Q14D 12/25/16 [History] Acetaminophen [Tylenol] 650 mg PO Q6HR PRN #0 tablet 12/28/16 [Rx] Ipratropium/Albuterol Neb [Duoneb] 3 ml IH QIDR inhsol 12/28/16 [Rx] Cholecalciferol (D-3) [Vitamin D] 1,000 unit PO DAILY 05/11/17 [History] Budesonide/Formoterol 160/4.5 [Symbicort 160/4.5] 2 puff IH BIDR 08/31/17 [ History] Cefdinir [Omnicef] 300 mg PO BID 08/31/17 [History] 3 Allergy/AdvReac Type Severity Reaction Status Date / Time levofloxacin [From Levaquin] Allergy Rash Verified 08/31/17 08:36 ondansetron Allergy Hives Verified 08/31/17 08:36 [From Zofran (as hydrochloride)] Penicillins AdvReac Rash Verified 08/31/17 08:36 All Systems PM: A 10-system review of systems was performed and is negative for pertinent findings except as documented above in the HPI. Review of systems: All the systems are reviewed everything is benign except the systems and symptoms I mentioned in the history of present illness - Constitutional Vitals: Temp Pulse Resp BP Pulse Ox 97.4 F L 71 16 124/75 98 08/31/17 08:33 08/31/17 10:33 08/31/17 09:47 08/31/17 10:33 08/31/17 10:33 General appearance: Present: cooperative, mild distress, A&O X 3, answers questions appropriately - Head Head exam: Present: atraumatic, normal inspection - Neck Neck exam general surgery: Present: supple - Respiratory Respiratory exam: Present: decreased breath sounds. Absent: rales, respiratory distress, rhonchi, wheezes - Cardiovascular Cardiovascular exam: Present: RRR, +S1, +S2. Absent: systolic murmur - GI/Abdominal GI/Abdominal exam: Present: normal bowel sounds, soft, tenderness (lower abdomen ). Absent: rebound, rigid - Extremities Exam Extremities exam: Absent: calf tenderness, pedal edema, tenderness - Back Exam Back exam: Absent: CVA tenderness (L), CVA tenderness (R) - Neurological Exam Neurological exam: Present: alert, oriented X3 - Psychiatric Psychiatric exam: Present: normal affect, normal mood - Skin Skin exam: Absent: rash Internal Med - H&P Results - Labs CBC & Chem 7: 08/31/17 09:00 08/31/17 09:00 Labs: Short CBC 08/31/17 Range/Units 09:00 WBC 8.6 (4.3-11.1) K/mcL Hgb 9.3 L (12.9-16.9) g/dL Hct 31.0 L (37.5-50.1) % Plt Count 292 (140-400) K/mcL Neutrophils # 5.8 (1.6-8.9) K/mcL BMP 08/31/17 09:00 Sodium 136 Potassium 4.2 Chloride 103 Carbon Dioxide 27 BUN 17 Creatinine 0.86 Glucose 126 H Calcium 8.8 Cardiac Enzymes 08/31/17 Range/Units 09:00 Troponin I 0.04 H* (< 0.04) ng/mL Liver Function 08/31/17 Range/Units 09:00 Total Bilirubin 0.5 (0.3-1.0) mg/dL Direct Bilirubin 0.1 (0.0-0.2) mg/dL AST 10 L (13-39) Units/L ALT 5 L (7-52) Units/L Alkaline Phosphatase 74 (34-104) Units/L Albumin 4.0 (3.5-5.7) g/dL - Impressions ITS Impressions Chest X-Ray 08/31/17 08:50 IMPRESSION: 1. Stable extensive chronic lung base scarring and bronchiectasis. 2. No acute pulmonary process. D/ / 08/31/2017 10:01:31 Jayesh Park MD / [facility] Interpreting Provider: Jayesh Park MD Abdomen/Pelvis CT 08/31/17 09:44 IMPRESSION: 1. Colonic diverticulosis 2. Small hiatal hernia, status post fundoplication 3. Prostatic enlarged 4. 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 Stable chronic bronchopulmonary disease in the lung bases RECOMMENDATIONS: Managing Abdominal Aortic Aneurysms 2.6-2.9 cm: Every 5 years* 3.0-3.4 cm: Every 3 years. 3.5-3.9 cm: Every 1 year. 4.0-4.4 cm: Every 1 year. Recommend vascular consultation. 4.5-5.4 cm: Every 6 months. Recommend vascular consultation. Greater than or equal to 5.5 cm: Referral to vascular surgeon. *For abdominal aortas with maximum diameter of 2.6-2.9 cm meeting criteria for AAA (>50% of proximal normal segment). D/ / Neri Rodgers MD / Neri Rodgers MD Interpreting Provider: Neri Rodgers MD
--- NOTE | 2017-08-31 12:33 | General Surgery Consult Note ---
Date of Encounter: 08/31/17 Time of Encounter: 12:27 Assessment and Plan (1) Abdominal pain Current Visit: Yes Status: Acute Etiology unknown at this time c-diff vs early diverticulitis vs internal hemorrhoids. CT consistent with diverticulitis without mention of diverticulitis. hgb is decreased but stable, VSS. Most recent colonoscopy completed by Dr. Leiva 2013 and notes distal rectum and anal verge are normal, diverticulosis in the descending colon, recommended repeat colonoscopy and 10 years.), negative EGD in 2016. C-diff study has been ordered and pending. Transfusions prn per primary team; expect further decrease in hgb Conservative management at this time agree with protonix BID IV serial abdominal exams agree with NPO further recommendations pending, but will likely need c-scope this admission Qualifiers: Abdominal location: generalized Qualified Code(s): R10.84 - Generalized abdominal pain (2) Bright red blood per rectum Current Visit: Yes Status: Acute (3) CAD (coronary artery disease) Current Visit: No Status: Chronic Qualifiers: Coronary Disease-Associated Artery/Lesion type: [place] artery [place] vs. transplanted heart: [place] heart Associated angina: without angina Qualified Code(s): I25.10 - Atherosclerotic heart disease of [place] coronary artery without angina pectoris (4) GERD (gastroesophageal reflux disease) Current Visit: No Status: Chronic Qualifiers: Esophagitis presence: without esophagitis Qualified Code(s): K21.9 - Gastro -esophageal reflux disease without esophagitis History of Present Illness Consult date: 08/31/17 (Dr. Lucie Leiva) Reason for consult: other (GI Bleed) Requesting physician: Марина Justice History of present illness: Consulting Provider: Dr. John Consulted Surgeon: Dr. Lucie Leiva Reason for Consult: GI bleed Cosmo is a 77 year old male with a past medical history of hypertension , GERD, insomnia, C diff, HLP, bronchiectasis (followed by Tor[facility]) most recent cultures with e-coli, ASHD and inferior NV, s/p PCI to RCA followed by Dr. Salinas and last seen in 01/2017 recommended to continue ASA, metoprolol, and HLP therapy. His last EGD was compelted by dr. Martinez in 02/2016 for GERD and was known to be normal, diverticulitis. He has a surgical history of cardiac stents times 2 2005, hiatal hernia repair 1984, Most recent colonoscopy completed by Dr. Leiva 2013 and notes distal rectum and anal verge are normal, diverticulosis in the descending colon, recommended repeat colonoscopy and 10 years.). He presented to the emergency department on 08/31/2017 for c/o abdominal pain and bright red blood per rectum. 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 His hemoglobin is 9.3 down from 11.6 on 08/02 (typical range for this patient is 8.3 to 11.6), WBC is normal and his VSS are stable. He has been started on . IV Flagyl due to "his severe lower abdominal pain." C diff has been ordered given his recurrent use of antibiotics for pneumonia. Patient requested Dr. Leiva to see him for a further work-up. Presently he denies fever, chills, headache, generalized weakness, CP, SOB ( outside his baseline), or near syncope. He endorses lightheaded and dizzy this am, abdominal cramping discomfort without associated factors and briefly relieved by BMs. 2 small BMss last night followed BRB and diarrhea (multiple episodes). Last was 0800 this am. He endorsees nausea, but no vomiting. No urinary s/s. He has lost 35 lbs over the last year which he attributes to his lung status. Past Med Surg Social Fam HX - Past Medical History Medical history: COPD, coronary artery disease, GERD, hyperlipidemia, hypertension, myocardial infarction, other (diverticulitis and GI bleeding) Psychiatric history: no psych history - Past Surgical History Surgical History: angioplasty/stent, herniorrhaphy, other - Social History Smoking Status: Never smoker Smokeless Tobacco Status: No Alcohol use: none Drug use: none - Family History Mother Adopted: No Living Status: Hx Family Respiratory Disorders: Yes (lung cancer) Hx Family Cancer: Yes (lung) Father Adopted: No Family Member Ethnicity: Non- Living Status: Hx Family Cardiac Disorders: Yes (Heart attack, htn) Hx Family Respiratory Disorders: No Hx Family Cancer: Yes Hx Family GI Disorders: No Hx Family Endocrine Disorder: Yes Hx Family Neuromuscular Disorders: No Hx Family Neurologic Disorders: No Hx Family HEENT Disorders: No Hx Family Autoimmune Disorders: Yes Brother Hx Family Cancer: Yes (Leukemia) Sister Adopted: No Living Status: Cause of : ALS Medications and Allergies Metoprolol XL (24 HR) Succ [Toprol Xl] 12.5 mg PO DAILY 02/04/15 [History] Niacin (24 HR) [Niaspan] 500 mg PO HS 02/04/15 [History] Albuterol Sulfate [Proair Hfa] 2 puff IH Q4H PRN 12/31/15 [History] Aspirin Enteric Coated [Aspirin EC] 81 mg PO DAILY 12/31/15 [History] Lansoprazole [Prevacid] 30 mg PO DAILY 12/31/15 [History] [place]-3/Dha/Epa/Fish Oil [Fish Oil 1,000 mg Softgel] 1,000 mg PO DAILY 03/11/16 [History] Oxygen 2 - 4 l NS AD 12/25/16 [History] Testosterone Cypionate [Depo-Testosterone] 200 mg IM Q14D 12/25/16 [History] Acetaminophen [Tylenol] 650 mg PO Q6HR PRN #0 tablet 12/28/16 [Rx] Ipratropium/Albuterol Neb [Duoneb] 3 ml IH QIDR inhsol 12/28/16 [Rx] Cholecalciferol (D-3) [Vitamin D] 1,000 unit PO DAILY 05/11/17 [History] Budesonide/Formoterol 160/4.5 [Symbicort 160/4.5] 2 puff IH BIDR 08/31/17 [ History] Cefdinir [Omnicef] 300 mg PO BID 08/31/17 [History] 3 Allergy/AdvReac Type Severity Reaction Status Date / Time levofloxacin [From Levaquin] Allergy Rash Verified 08/31/17 08:36 ondansetron Allergy Hives Verified 08/31/17 08:36 [From Zofran (as hydrochloride)] Penicillins AdvReac Rash Verified 08/31/17 08:36 Review of Systems All systems PM: reviewed and no additional remarkable complaints except as stated All systems PM: The remainder of the systems were reviewed and are negative General Surgery Exam Initial Vital Signs Temp Pulse Resp BP Pulse Ox 97.4 F L 86 18 97/62 100 08/31/17 08:33 08/31/17 08:33 08/31/17 08:33 08/31/17 08:33 08/31/17 08:33 - General physical appearance well developed, well nourished, no distress - Eyes normal ocular movement - Neck no masses, no bruits, trachea midline, no lymphadectomy, no venous distension - Respiratory other (Decreased in course throughout) - Cardiovascular Cardiovascular exam: Present: RRR, 15, 16 - Abdomen Abdomen general surgery: Present: bowel sounds present, soft, tender Abdominal Tenderness: Present: diffusely Hernia: Present: none - Integumentary Integumentary general surgery: Present: warm and dry, no abnormal pigmentation - Neurologic Present: CN 2-12 grossly intact, normal coordination, normal sensation - Musculoskeletal Present: normal gait, normal posture - Psychiatric Psychiatric general surgery: Present: A&Ox3, appropriate, oriented to person, oriented to place, oriented to time, speech is normal, memory intact Exam Initial Vital Signs Temp Pulse Resp BP Pulse Ox 97.4 F L 86 18 97/62 100 08/31/17 08:33 08/31/17 08:33 08/31/17 08:33 08/31/17 08:33 08/31/17 08:33 Results - Labs 08/31/17 09:00 08/31/17 09:00 Abnormal lab results RBC 3.85 M/mcL (4.19-5.50) L 08/31/17 09:00 Hgb 9.3 g/dL (12.9-16.9) L 08/31/17 09:00 Hct 31.0 % (37.5-50.1) L 08/31/17 09:00 MCV 80.5 fL (83.0-100.0) L 08/31/17 09:00 MCH 24.2 pg (28.0-33.3) L 08/31/17 09:00 MCHC 30.0 g/dL (31.6-35.5) L 08/31/17 09:00 RDW 19.2 % (11.5-14.5) H 08/31/17 09:00 MPV 8.9 fL (9.4-12.4) L 08/31/17 09:00 ESR 43 mm/hr (0-10) H 08/31/17 09:00 Glucose 126 mg/dL (70-105) H 08/31/17 09:00 AST 10 Units/L (13-39) L 08/31/17 09:00 ALT 5 Units/L (7-52) L 08/31/17 09:00 Troponin I 0.04 ng/mL (< 0.04) H* 08/31/17 09:00 C-Reactive Protein 14 mg/L (Less than 10) H 08/31/17 09:00 Diabetes panel 08/31/17 Range/Units 09:00 Sodium 136 (136-145) mEq/L Potassium 4.2 (3.5-5.1) mEq/L Chloride 103 (98-107) mEq/L Carbon Dioxide 27 (23-29) mEq/L BUN 17 (8-23) mg/dL Creatinine 0.86 (0.70-1.30) mg/dL Glucose 126 H (70-105) mg/dL Calcium 8.8 (8.6-10.3) mg/dL AST 10 L (13-39) Units/L ALT 5 L (7-52) Units/L Alkaline Phosphatase 74 (34-104) Units/L Albumin 4.0 (3.5-5.7) g/dL Calcium panel 08/31/17 Range/Units 09:00 Calcium 8.8 (8.6-10.3) mg/dL Albumin 4.0 (3.5-5.7) g/dL Pituitary panel 08/31/17 Range/Units 09:00 Sodium 136 (136-145) mEq/L Potassium 4.2 (3.5-5.1) mEq/L Chloride 103 (98-107) mEq/L Carbon Dioxide 27 (23-29) mEq/L BUN 17 (8-23) mg/dL Creatinine 0.86 (0.70-1.30) mg/dL Glucose 126 H (70-105) mg/dL Calcium 8.8 (8.6-10.3) mg/dL Adrenal panel 08/31/17 Range/Units 09:00 Sodium 136 (136-145) mEq/L Potassium 4.2 (3.5-5.1) mEq/L Chloride 103 (98-107) mEq/L Carbon Dioxide 27 (23-29) mEq/L BUN 17 (8-23) mg/dL Creatinine 0.86 (0.70-1.30) mg/dL Glucose 126 H (70-105) mg/dL Calcium 8.8 (8.6-10.3) mg/dL Total Bilirubin 0.5 (0.3-1.0) mg/dL AST 10 L (13-39) Units/L ALT 5 L (7-52) Units/L Alkaline Phosphatase 74 (34-104) Units/L Albumin 4.0 (3.5-5.7) g/dL All other labs normal. - Imaging CT scan - abdomen: report reviewed CT scan - pelvis: report reviewed Consult Discharge Plan - Plan
--- NOTE | 2017-08-31 14:35 | Electrocardiograph Report ---
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
[2017-08-31] MEDS: 0.9 % Sodium Chloride 1,000 ML IVC SCH ×2 (14:49→22:19)
[2017-08-31] MEDS: Acetaminophen 325 MG TABLET PO PRN (15:07)
[2017-08-31 16:02] LABS: Hematocrit 27.8 % (37.5-50.1); Hemoglobin 8.4 g/dL (12.9-16.9)
[2017-08-31] MEDS: Pantoprazole 40 MG VIAL IVP SCH (18:12)
[2017-08-31] MEDS: MetroNIDAZOLE 500 MG/100 ML 500 MG/100 ML BAG IVPB SCH (18:12)
[2017-08-31] MEDS: Niacin (24 HR) 500 MG TAB.ER.24H PO SCH (22:07)
[2017-08-31 22:19] LABS: Hematocrit 26.6 % (37.5-50.1)
[2017-08-31] MEDS: Budesonide/Formoterol 160/4.5 MDI IH SCH (22:25)
[2017-09-01] MEDS: MetroNIDAZOLE 500 MG/100 ML 500 MG/100 ML BAG IVPB SCH ×4 (00:18→23:56)
[2017-09-01] MEDS: Pantoprazole 40 MG VIAL IVP SCH ×2 (05:57→16:52)
[2017-09-01 06:56] LABS: Basophils % 0.4 %; Eosinophils # 0.2 K/mcL (0.0-0.6); Hematocrit 25.1 % (37.5-50.1); Hemoglobin 7.5 g/dL (12.9-16.9); Immature Granulocytes % 0.1 % (0-4); Lymphocytes # 1.2 K/mcL (0.6-4.6); Lymphocytes % 14.2 %; Mean Corpuscular HGB Conc 29.9 g/dL (31.6-35.5); Mean Corpuscular Hemoglobin 23.7 pg (28.0-33.3); Mean Corpuscular Volume 79.4 fL (83.0-100.0); Mean Platelet Volume 9.3 fL (9.4-12.4); Monocytes # 0.6 K/mcL (0.0-1.3); Monocytes % 6.7 %; Neutrophils # 6.4 K/mcL (1.6-8.9); Platelet Count 209 K/mcL (140-400); Red Blood Count 3.16 M/mcL (4.19-5.50); Red Cell Distribution Width 18.7 % (11.5-14.5); Segmented Neutrophils % 76.6 %
[2017-09-01 07:16] LABS: Alanine Aminotransferase 4 Units/L (7-52); Albumin 3.5 g/dL (3.5-5.7); Albumin/Globulin Ratio 1.2 (1.1-2.2); Alkaline Phosphatase 67 Units/L (34-104); Aspartate Amino Transferase 9 Units/L (13-39); BUN/Creatinine Ratio 20 (6-26); Bilirubin,Total 0.5 mg/dL (0.3-1.0); Blood Urea Nitrogen 15 mg/dL (8-23); Calcium 8.6 mg/dL (8.6-10.3); Carbon Dioxide 27 mEq/L (23-29); Chloride 103 mEq/L (98-107); Glucose 88 mg/dL (70-105); Magnesium 1.7 mg/dL (1.6-2.6); Osmolality,Calculated 284 (280-300); Potassium 3.9 mEq/L (3.5-5.1); Sodium 137 mEq/L (136-145); Total Protein 6.5 g/dL (6.4-8.9); eGFR For African Americans > 60 (> 60); eGFR For Non-African Americans > 60 (> 60)
[2017-09-01] MEDS: Budesonide/Formoterol 160/4.5 MDI IH SCH ×2 (07:42→22:16)
[2017-09-01] MEDS: Metoprolol XL (24 HR) Succ 25 MG TAB.ER.24H PO SCH (08:41)
[2017-09-01] MEDS: Acetaminophen 325 MG TABLET PO PRN ×2 (08:42→19:59)
[2017-09-01] MEDS ORDERED: (Omega-3/Dha/Epa/Fish Oil [Fish Oil 1,000 Mg Softgel] PO SCH (09:00)
--- NOTE | 2017-09-01 09:17 | Internal Med Progress Note ---
Date of Encounter: 09/01/17 Time of Encounter: 09:16 - Assessment and plan (1) Acute blood loss anemia Current Visit: Yes Status: Acute Assessment and plan: HB at 7.5 this a.m, continue to monitor, type and screen (2) Bright red blood per rectum Current Visit: Yes Status: Acute Assessment and plan: Surgery eval noted, possibly diverticular (3) CAD (coronary artery disease) Current Visit: Yes Status: Chronic Assessment and plan: continue home meds Qualifiers: Coronary Disease-Associated Artery/Lesion type: [place] artery [place] vs. transplanted heart: [place] heart Associated angina: without angina Qualified Code(s): I25.10 - Atherosclerotic heart disease of [place] coronary artery without angina pectoris (4) COPD (chronic obstructive pulmonary disease) Current Visit: Yes Status: Chronic Assessment and plan: not in exacerbation at this time, duonebs prn, continue home meds Qualifiers: COPD type: unspecified COPD Qualified Code(s): J44.9 - Chronic obstructive pulmonary disease, unspecified (5) DVT prophylaxis Current Visit: Yes Status: Acute Assessment and plan: SCDs (6) GERD (gastroesophageal reflux disease) Current Visit: Yes Status: Chronic Assessment and plan: continue home PPI Qualifiers: Esophagitis presence: without esophagitis Qualified Code(s): K21.9 - Gastro -esophageal reflux disease without esophagitis (7) Hyperlipidemia Current Visit: Yes Status: Chronic Assessment and plan: continue home meds Qualifiers: Hyperlipidemia type: mixed hyperlipidemia Qualified Code(s): E78.2 - Mixed hyperlipidemia (8) Hypertension Current Visit: Yes Status: Chronic Assessment and plan: continue home meds Qualifiers: Hypertension type: essential hypertension Qualified Code(s): I10 - Essential (primary) hypertension (9) Bronchiectasis Current Visit: Yes Status: Acute Assessment and plan: sputum with e.coli, patient was started on omnicef by infectious disease one day prior to admission, continue ceftriaxone Infectious disease eval prior to discharge Qualifiers: Bronchiectasis type: with acute lower respiratory infection Qualified Code( s): J47.0 - Bronchiectasis with acute lower respiratory infection - Subjective Interval history: Seen and examined at the bedside with his 77 M admitted for acute blood loss anemia suspected to be secondary to a LGIB and bright red blood per rectum Surgery eval noted-patient with recently normal EGD and unremarkable Colonosocpy Hb continues to downtrend, 7.5 this morning, patient's baseline hovers around 10 -hemodynamially stable He has had not had any episode of BRBPR in-patient C.diff testing was ordered but pending due to no output Patient also reports and chart review confirms E.coli in his sputum , he had just started taking an antibiotic on the day prior to his GI symptoms He denies any symptoms currently His CXR does show bronchiectasis, which is known to patient - Constitutional Vitals: Temp Pulse Resp BP Pulse Ox 98.4 F 87 18 120/63 92 09/01/17 06:51 09/01/17 06:51 09/01/17 07:42 09/01/17 06:51 09/01/17 07:42 General appearance: Present: cooperative, A&O X 3, pleasant, no acute distress, answers questions appropriately - Head Head exam: Present: atraumatic, normocephalic - Eye Eye exam: Present: PERRL, conjuntiva pink, sclera anicteric Pupils: Present: PERRL - Neck Neck exam general surgery: Present: supple, trachea midline. Absent: lymphadenopathy - Respiratory Respiratory exam: Present: rales (inspiratory crackles at the bases). Absent: accessory muscle use, rhonchi, wheezes - Cardiovascular Cardiovascular exam: Present: RRR, +S1, +S2. Absent: diastolic murmur, gallop, rubs, systolic murmur - GI/Abdominal GI/Abdominal exam: Present: normal bowel sounds, soft, no peritoneal signs. Absent: distended, tenderness - Extremities Exam Extremities exam: Present: warm, radial pulses palpable and symmetrical. Absent : calf tenderness, cyanotic, pedal edema - Neurological Exam Neurological exam: Present: alert, CN II-XII intact, oriented X3, no focal deficits. Absent: pronater drift, facial droop, speech deficit - Skin Skin exam: Present: dry, intact Internal Medicine: Result - Labs CBC & Chem 7: 09/01/17 12:30 09/01/17 06:26 Labs: Short CBC 08/31/17 08/31/17 09/01/17 Range/Units 15:43 21:56 06:26 WBC 8.3 (4.3-11.1) K/mcL Hgb 8.4 L 8.0 L 7.5 L (12.9-16.9) g/dL Hct 27.8 L 26.6 L 25.1 L (37.5-50.1) % Plt Count 209 (140-400) K/mcL Neutrophils # 6.4 (1.6-8.9) K/mcL BMP 09/01/17 06:26 Sodium 137 Potassium 3.9 Chloride 103 Carbon Dioxide 27 BUN 15 Creatinine 0.74 Glucose 88 Calcium 8.6 Liver Function 09/01/17 Range/Units 06:26 Total Bilirubin 0.5 (0.3-1.0) mg/dL AST 9 L (13-39) Units/L ALT 4 L (7-52) Units/L Alkaline Phosphatase 67 (34-104) Units/L Albumin 3.5 (3.5-5.7) g/dL Consult Discharge Plan - Plan Referrals: Rocio Cervantes, FORE[employer] LANGUAGES DEPARTMENT CHAIR [Primary Care Provider] -
--- NOTE | 2017-09-01 10:02 | General Surgery Progress Note ---
Date of Encounter: 09/01/17 Time of Encounter: 09:50 - Assessment and Plan (1) Bright red blood per rectum Current Visit: Yes Status: Acute No evidence of current or ongoing bleeding Suspect diverticular bleed which has resolved No indication for endoscopy at this time Clear liquid diet today Recommend repeat Hgb/Hct in the am unless evidence of ongoing bleeding per rectum Supportive care C-diff ordered- no specimen sent due to no stool since admission Surgery will continue to follow and assess progress (2) Acute blood loss anemia Current Visit: Yes Status: Acute Hgb- 9.3>8.4>8.0>7.5 Expected drop secondary to initial bleeding No evidence of current or ongoing GI bleeding No indication for endoscopic intervention at this time Surgery will continue to follow and assess progress No blood transfusions at this time- patient Hgb is above 7 and asymptomatic Recommend repeat Hgb/Hct in the am unless further evidence of ongoing bleeding per rectum Subjective Patient reports: no new complaints, feels better, voiding w/o difficulty, flatus , no bowel movement, afebrile, other (Patient denies any bowel movements or blood per rectum) Objective Vital Signs - Last 8 Hours Temp Pulse Resp BP Pulse Ox 09/01/17 07:42 18 92 09/01/17 06:51 98.4 F 87 18 120/63 92 09/01/17 04:28 98.1 F 74 15 140/74 99 Intake and Output 08/31/17 09/01/17 09/01/17 23:59 07:59 15:59 Intake Total 1000 / 1000 100 / 100 Output Total 300 / 300 475 / 475 Balance 700 / 700 -375 / -375 Intake: IV Fluids 1000 / 1000 100 / 100 0.9 % Sodium Chloride 1,000 ML 1000 / 1000 @ 125 mls/hr IVC .Q8H [facility] Rx#: [id number] Flagyl Premix 500 MG/100 ML 500 0 / 0 100 / 100 mg In 100 ml @ 100 mls/hr IVPB Q8HR [facility] Rx#:[id number] Oral 0 / 0 0 / 0 Output: Urine 300 / 300 475 / 475 Other: Meal NPO # Voids 1 Weight 71 kg Blood Glucose* 91 88 Patient Weight 09/01/17 23:59 Weight 71 kg - General physical appearance well developed, well nourished, no distress, no pain - Eyes normal ocular movement (Conjuctiva pink) - ENT normal mucosa, atraumatic, normocephalic - Neck Neck exam: trachea midline - Respiratory normal respiratory effort, clear to auscultation - Cardiovascular Cardiovascular exam: Present: RRR - Abdomen Abdomen: Present: bowel sounds present, soft, non tender - Neurologic CN 2-12 grossly intact - Musculoskeletal normal gait, normal posture - Psychiatric oriented to time, oriented to person, oriented to place, speech is normal, memory intact - Labs 09/01/17 06:26 09/01/17 06:26 Diabetes panel 09/01/17 Range/Units 06:26 Sodium 137 (136-145) mEq/L Potassium 3.9 (3.5-5.1) mEq/L Chloride 103 (98-107) mEq/L Carbon Dioxide 27 (23-29) mEq/L BUN 15 (8-23) mg/dL Creatinine 0.74 (0.70-1.30) mg/dL Glucose 88 (70-105) mg/dL Calcium 8.6 (8.6-10.3) mg/dL AST 9 L (13-39) Units/L ALT 4 L (7-52) Units/L Alkaline Phosphatase 67 (34-104) Units/L Albumin 3.5 (3.5-5.7) g/dL Calcium panel 09/01/17 Range/Units 06:26 Calcium 8.6 (8.6-10.3) mg/dL Albumin 3.5 (3.5-5.7) g/dL Pituitary panel 09/01/17 Range/Units 06:26 Sodium 137 (136-145) mEq/L Potassium 3.9 (3.5-5.1) mEq/L Chloride 103 (98-107) mEq/L Carbon Dioxide 27 (23-29) mEq/L BUN 15 (8-23) mg/dL Creatinine 0.74 (0.70-1.30) mg/dL Glucose 88 (70-105) mg/dL Calcium 8.6 (8.6-10.3) mg/dL Adrenal panel 09/01/17 Range/Units 06:26 Sodium 137 (136-145) mEq/L Potassium 3.9 (3.5-5.1) mEq/L Chloride 103 (98-107) mEq/L Carbon Dioxide 27 (23-29) mEq/L BUN 15 (8-23) mg/dL Creatinine 0.74 (0.70-1.30) mg/dL Glucose 88 (70-105) mg/dL Calcium 8.6 (8.6-10.3) mg/dL Total Bilirubin 0.5 (0.3-1.0) mg/dL AST 9 L (13-39) Units/L ALT 4 L (7-52) Units/L Alkaline Phosphatase 67 (34-104) Units/L Albumin 3.5 (3.5-5.7) g/dL Consult Discharge Plan - Plan Referrals: Rocio Cervantes, ARIE [Primary Care Provider] - - Attending Attestation For this encounter, I have reviewed the SUPERVISOR LACE TEARING or PA documentation, treatment plan, and medical decision making; and I have had face to face time with this patient.
[2017-09-01] MEDS: cefTRIAXone 2,000 MG in Water for inj. (sterile) 20 ML 20 ML IVP SCH (10:51)
[2017-09-01 12:55] LABS: Basophils % 0.5 %; Eosinophils # 0.1 K/mcL (0.0-0.6); Eosinophils % 0.6 %; Hematocrit 26.6 % (37.5-50.1); Hemoglobin 7.8 g/dL (12.9-16.9); Immature Granulocytes % 0.2 % (0-4); Lymphocytes # 1.4 K/mcL (0.6-4.6); Lymphocytes % 16.6 %; Mean Corpuscular HGB Conc 29.3 g/dL (31.6-35.5); Mean Corpuscular Hemoglobin 23.6 pg (28.0-33.3); Mean Corpuscular Volume 80.6 fL (83.0-100.0); Mean Platelet Volume 9.1 fL (9.4-12.4); Monocytes # 0.5 K/mcL (0.0-1.3); Neutrophils # 6.3 K/mcL (1.6-8.9); Platelet Count 232 K/mcL (140-400); Red Cell Distribution Width 18.9 % (11.5-14.5); Segmented Neutrophils % 76.1 %
[2017-09-01 13:04] LABS: INR 1.1; Prothrombin Time 12.4 Seconds (9.4-12.1)
[2017-09-01] MEDS: Niacin (24 HR) 500 MG TAB.ER.24H PO SCH (19:48)
[2017-09-02 04:50] LABS: Basophils % 0.6 %; Eosinophils # 0.2 K/mcL (0.0-0.6); Eosinophils % 2.6 %; Hematocrit 22.8 % (37.5-50.1); Hemoglobin 6.9 g/dL (12.9-16.9); Immature Granulocytes % 0.3 % (0-4); Lymphocytes # 1.3 K/mcL (0.6-4.6); Lymphocytes % 21.1 %; Mean Corpuscular HGB Conc 30.3 g/dL (31.6-35.5); Mean Corpuscular Hemoglobin 23.8 pg (28.0-33.3); Mean Corpuscular Volume 78.6 fL (83.0-100.0); Mean Platelet Volume 8.8 fL (9.4-12.4); Monocytes # 0.5 K/mcL (0.0-1.3); Monocytes % 8.1 %; Neutrophils # 4.2 K/mcL (1.6-8.9); Platelet Count 197 K/mcL (140-400); Red Cell Distribution Width 18.6 % (11.5-14.5); Segmented Neutrophils % 67.3 %
[2017-09-02] MEDS: Pantoprazole 40 MG VIAL IVP SCH ×2 (05:11→18:59)
[2017-09-02 05:19] LABS: BUN/Creatinine Ratio 19 (6-26); Blood Urea Nitrogen 15 mg/dL (8-23); Calcium 8.7 mg/dL (8.6-10.3); Carbon Dioxide 27 mEq/L (23-29); Chloride 102 mEq/L (98-107); Glucose 103 mg/dL (70-105); Osmolality,Calculated 283 (280-300); Potassium 3.7 mEq/L (3.5-5.1); Sodium 136 mEq/L (136-145); eGFR For African Americans > 60 (> 60); eGFR For Non-African Americans > 60 (> 60)
[2017-09-02] MEDS: Budesonide/Formoterol 160/4.5 MDI IH SCH ×2 (08:25→20:24)
--- NOTE | 2017-09-02 09:07 | General Surgery Progress Note ---
Date of Encounter: 09/02/17 Time of Encounter: 08:45 - Assessment and Plan (1) Bright red blood per rectum Current Visit: Yes Status: Acute No evidence of current or ongoing bleeding Suspect diverticular bleed which has resolved No indication for endoscopy at this time Advance to soft, chopped meat diet Recommend repeat Hgb/Hct in the am unless evidence of ongoing bleeding per rectum Supportive care Surgery will continue to follow and assess progress (2) Acute blood loss anemia Current Visit: Yes Status: Acute Hgb- 9.3>8.4>8.0>7.5>7.8>6.9 No evidence of current or ongoing GI bleeding No indication for endoscopic intervention at this time Surgery will continue to follow and assess progress No blood transfusions at this time- patient is asymptomatic Will add iron supplementation TID Recommend repeat Hgb/Hct in the am unless further evidence of ongoing bleeding per rectum Subjective Patient reports: no new complaints, feels better, tolerating liquids well, voiding w/o difficulty, flatus, no bowel movement, afebrile, other (Patient reports no rectal bleeding. Denies any dizziness or syncope. Complaint of headache.) Objective Vital Signs - Last 8 Hours Temp Pulse Resp BP Pulse Ox 09/02/17 08:27 14 94 09/02/17 07:07 98.2 F 81 14 118/60 94 09/02/17 04:16 97.8 F 76 14 132/70 99 Intake and Output 09/01/17 09/02/17 09/02/17 23:59 07:59 15:59 Intake Total 160 / 160 360 / 360 Output Total 575 / 575 650 / 650 Balance -415 / -415 -290 / -290 Intake: IV Fluids 100 / 100 100 / 100 Flagyl Premix 500 MG/100 ML 500 100 / 100 100 / 100 mg In 100 ml @ 100 mls/hr IVPB Q8HR [facility] Rx#:[id number] Oral 60 / 60 260 / 260 Output: Urine 575 / 575 650 / 650 Other: Weight 71.2 kg Patient Weight 09/02/17 23:59 Weight 71.2 kg - General physical appearance well developed, well nourished, no distress, no pain - Eyes normal ocular movement (conjuctiva pale pink (unchanged)) - ENT normal mucosa, atraumatic, normocephalic - Neck Neck exam: trachea midline - Respiratory normal respiratory effort, clear to auscultation - Cardiovascular Cardiovascular exam: Present: RRR - Abdomen Abdomen: Present: bowel sounds present, soft, non tender - Neurologic CN 2-12 grossly intact - Musculoskeletal normal gait, normal posture - Psychiatric oriented to time, oriented to person, oriented to place, speech is normal, memory intact - Labs 09/02/17 04:38 09/02/17 04:38 Diabetes panel 09/02/17 Range/Units 04:38 Sodium 136 (136-145) mEq/L Potassium 3.7 (3.5-5.1) mEq/L Chloride 102 (98-107) mEq/L Carbon Dioxide 27 (23-29) mEq/L BUN 15 (8-23) mg/dL Creatinine 0.78 (0.70-1.30) mg/dL Glucose 103 (70-105) mg/dL Calcium 8.7 (8.6-10.3) mg/dL Calcium panel 09/02/17 Range/Units 04:38 Calcium 8.7 (8.6-10.3) mg/dL Pituitary panel 09/02/17 Range/Units 04:38 Sodium 136 (136-145) mEq/L Potassium 3.7 (3.5-5.1) mEq/L Chloride 102 (98-107) mEq/L Carbon Dioxide 27 (23-29) mEq/L BUN 15 (8-23) mg/dL Creatinine 0.78 (0.70-1.30) mg/dL Glucose 103 (70-105) mg/dL Calcium 8.7 (8.6-10.3) mg/dL Adrenal panel 09/02/17 Range/Units 04:38 Sodium 136 (136-145) mEq/L Potassium 3.7 (3.5-5.1) mEq/L Chloride 102 (98-107) mEq/L Carbon Dioxide 27 (23-29) mEq/L BUN 15 (8-23) mg/dL Creatinine 0.78 (0.70-1.30) mg/dL Glucose 103 (70-105) mg/dL Calcium 8.7 (8.6-10.3) mg/dL Consult Discharge Plan - Plan Referrals: Rocio Cervantes HEARING HEALTH TECHNICIAN [Primary Care Provider] - - Attending Attestation For this encounter, I have reviewed the ANIMAL ASSISTANT or PA documentation, treatment plan, and medical decision making; and I have had face to face time with this patient.
[2017-09-02] MEDS: cefTRIAXone 2,000 MG in Water for inj. (sterile) 20 ML 20 ML IVP SCH (09:58)
[2017-09-02] MEDS: Metoprolol XL (24 HR) Succ 25 MG TAB.ER.24H PO SCH (09:58)
[2017-09-02] MEDS: MetroNIDAZOLE 500 MG/100 ML 500 MG/100 ML BAG IVPB SCH ×2 (09:59→19:00)
--- NOTE | 2017-09-02 13:20 | Internal Med Progress Note ---
Date of Encounter: 09/02/17 Time of Encounter: 13:20 - Assessment and plan (1) Acute blood loss anemia Current Visit: Yes Status: Acute Assessment and plan: HB at 6.9 this a.m, Night team ordered RBCS, refused by patient, continue to monitor NO Increasing O2 requirement, hemodynamically stable (2) Bright red blood per rectum Current Visit: Yes Status: Acute Assessment and plan: Surgery eval noted, possibly diverticular (3) CAD (coronary artery disease) Current Visit: Yes Status: Chronic Assessment and plan: continue home meds Qualifiers: Coronary Disease-Associated Artery/Lesion type: [place] artery [place] vs. transplanted heart: [place] heart Associated angina: without angina Qualified Code(s): I25.10 - Atherosclerotic heart disease of [place] coronary artery without angina pectoris (4) COPD (chronic obstructive pulmonary disease) Current Visit: Yes Status: Chronic Assessment and plan: not in exacerbation at this time, duonebs prn, continue home meds Qualifiers: COPD type: unspecified COPD Qualified Code(s): J44.9 - Chronic obstructive pulmonary disease, unspecified (5) DVT prophylaxis Current Visit: Yes Status: Acute Assessment and plan: SCDs (6) GERD (gastroesophageal reflux disease) Current Visit: Yes Status: Chronic Assessment and plan: continue home PPI Qualifiers: Esophagitis presence: without esophagitis Qualified Code(s): K21.9 - Gastro -esophageal reflux disease without esophagitis (7) Hyperlipidemia Current Visit: Yes Status: Chronic Assessment and plan: continue home meds Qualifiers: Hyperlipidemia type: mixed hyperlipidemia Qualified Code(s): E78.2 - Mixed hyperlipidemia (8) Hypertension Current Visit: Yes Status: Chronic Assessment and plan: continue home meds Qualifiers: Hypertension type: essential hypertension Qualified Code(s): I10 - Essential (primary) hypertension (9) Bronchiectasis Current Visit: Yes Status: Acute Assessment and plan: sputum with e.coli, patient was started on omnicef by infectious disease one day prior to admission Received ceftriaxone 09/01 and 09/02 Continue with home dose of Omnicef Follow up with Infectious disease as out-patient Qualifiers: Bronchiectasis type: with acute lower respiratory infection Qualified Code( s): J47.0 - Bronchiectasis with acute lower respiratory infection - Subjective Interval history: Seen and examined at the bedside with his 77 M admitted for acute blood loss anemia suspected to be secondary to a LGIB and bright red blood per rectum Surgery eval noted-patient with recently normal EGD and unremarkable Colonosocpy Hb continues to downtrend, 6.9 this morning. PRBCs had been scheduled by night team 1 unit of packed red cells transfusion due to his drop in hemoglobin. Per plowing gardens, this was discontinued mid-transfusion by the surgical team He has had not had any episode of BRBPR in-patient he is seen and examined at his bedside with his partner, tolerating a regular diet for lunch. No new complains. Patient has a hx of bronchiectasis and was started on Omnicef for E.coli in his sputum by the infectious disease team, he has been continued on this in- patient, received IV yesterday 09/02 due to NPO status. I spoke with Dr. Piedra and they will ensure patient has a follow up appointment with them. There is currently no indication for an Infectious disease consult for this patient at this time - Constitutional Vitals: Temp Pulse Resp BP Pulse Ox 98.6 F 87 14 101/53 93 09/02/17 11:03 09/02/17 11:03 09/02/17 11:03 09/02/17 11:03 09/02/17 11:03 General appearance: Present: cooperative, A&O X 3, pleasant, no acute distress, answers questions appropriately - Head Head exam: Present: atraumatic, normocephalic - Eye Eye exam: Present: PERRL, conjuntiva pink, sclera anicteric Pupils: Present: PERRL - Neck Neck exam general surgery: Present: supple, trachea midline. Absent: lymphadenopathy - Respiratory Respiratory exam: Present: rhonchi - Cardiovascular Cardiovascular exam: Present: RRR, +S1, +S2. Absent: diastolic murmur, gallop, rubs, systolic murmur - GI/Abdominal GI/Abdominal exam: Present: normal bowel sounds, soft, no peritoneal signs. Absent: distended, tenderness - Extremities Exam Extremities exam: Present: warm, radial pulses palpable and symmetrical. Absent : calf tenderness, cyanotic, pedal edema - Neurological Exam Neurological exam: Present: alert, CN II-XII intact, oriented X3, no focal deficits. Absent: pronater drift, facial droop, speech deficit - Skin Skin exam: Present: dry, intact Internal Medicine: Result - Labs CBC & Chem 7: 09/02/17 04:38 09/02/17 04:38 Labs: Short CBC 09/02/17 Range/Units 04:38 WBC 6.2 (4.3-11.1) K/mcL Hgb 6.9 L (12.9-16.9) g/dL Hct 22.8 L (37.5-50.1) % Plt Count 197 (140-400) K/mcL Neutrophils # 4.2 (1.6-8.9) K/mcL BMP 09/02/17 04:38 Sodium 136 Potassium 3.7 Chloride 102 Carbon Dioxide 27 BUN 15 Creatinine 0.78 Glucose 103 Calcium 8.7 - ABG Interpretation ABG results: PT/INR, D-dimer PT 12.4 Seconds (9.4-12.1) H 09/01/17 12:30 Consult Discharge Plan - Plan Referrals: Rocio Cervantes CHILDHOOD DEVELOPMENT TEACHER [Primary Care Provider] -
[2017-09-02] MEDS: Niacin (24 HR) 500 MG TAB.ER.24H PO SCH (20:06)
[2017-09-03] MEDS: MetroNIDAZOLE 500 MG/100 ML 500 MG/100 ML BAG IVPB SCH ×2 (00:06→09:22)
[2017-09-03] MEDS: Pantoprazole 40 MG VIAL IVP SCH (05:20)
[2017-09-03 05:54] LABS: Basophils % 0.6 %; Eosinophils # 0.2 K/mcL (0.0-0.6); Eosinophils % 4.3 %; Hematocrit 22.9 % (37.5-50.1); Hemoglobin 6.9 g/dL (12.9-16.9); Immature Granulocytes % 0.2 % (0-4); Lymphocytes # 1.7 K/mcL (0.6-4.6); Lymphocytes % 31.2 %; Mean Corpuscular HGB Conc 30.1 g/dL (31.6-35.5); Mean Corpuscular Hemoglobin 24.1 pg (28.0-33.3); Mean Corpuscular Volume 80.1 fL (83.0-100.0); Mean Platelet Volume 9.5 fL (9.4-12.4); Monocytes # 0.5 K/mcL (0.0-1.3); Monocytes % 9.6 %; Neutrophils # 2.9 K/mcL (1.6-8.9); Platelet Count 217 K/mcL (140-400); Red Blood Count 2.86 M/mcL (4.19-5.50); Red Cell Distribution Width 18.6 % (11.5-14.5); Segmented Neutrophils % 54.1 %
[2017-09-03 06:06] LABS: BUN/Creatinine Ratio 20 (6-26); Blood Urea Nitrogen 16 mg/dL (8-23); Calcium 8.6 mg/dL (8.6-10.3); Carbon Dioxide 28 mEq/L (23-29); Chloride 102 mEq/L (98-107); Glucose 92 mg/dL (70-105); Osmolality,Calculated 285 (280-300); Potassium 3.9 mEq/L (3.5-5.1); Sodium 137 mEq/L (136-145); eGFR For African Americans > 60 (> 60); eGFR For Non-African Americans > 60 (> 60)
[2017-09-03] MEDS: Budesonide/Formoterol 160/4.5 MDI IH SCH (08:03)
--- NOTE | 2017-09-03 08:16 | General Surgery Progress Note ---
Date of Encounter: 09/03/17 Time of Encounter: 08:00 - Assessment and Plan (1) Bright red blood per rectum Current Visit: Yes Status: Acute No evidence of current or ongoing bleeding Suspect diverticular bleed which has resolved No indication for endoscopy at this time Continue soft, chopped meat diet (high fiber) Supportive care May discharge to home from a surgery perspective, plan for outpatient follow- up in the upcoming weeks (2) Acute blood loss anemia Current Visit: Yes Status: Acute Hgb- 9.3>8.4>8.0>7.5>7.8>6.9>6.9 No evidence of current or ongoing GI bleeding No indication for endoscopic intervention at this time No blood transfusions at this time- patient is asymptomatic Continue iron supplementation TID May discharge to home from a surgery perspective, plan for outpatient follow- up in the upcoming weeks Subjective Patient reports: no new complaints, feels better, tolerating a regular diet ( soft diet), voiding w/o difficulty, flatus, no bowel movement, afebrile Objective Vital Signs - Last 8 Hours Temp Pulse Resp BP Pulse Ox 09/03/17 08:05 19 99 09/03/17 07:14 97.8 F 67 19 108/48 99 09/03/17 03:58 98.2 F 69 14 131/50 100 Intake and Output 09/02/17 09/03/17 09/03/17 23:59 07:59 15:59 Intake Total 460 / 460 600 / 600 Output Total 150 / 150 0 / 0 Balance 310 / 310 600 / 600 Intake: IV Fluids 100 / 100 100 / 100 Flagyl Premix 500 MG/100 ML 500 100 / 100 100 / 100 mg In 100 ml @ 100 mls/hr IVPB Q8HR [facility] Rx#:[id number] Oral 360 / 360 500 / 500 Output: Urine 150 / 150 0 / 0 Urostomy 0 / 0 Other: Meal Dinner Percent of Meal Consumed 100% Weight 71 kg Patient Weight 09/03/17 23:59 Weight 71 kg - General physical appearance well developed, well nourished, no distress, no pain - Eyes normal ocular movement - ENT normal mucosa, atraumatic, normocephalic - Neck Neck exam: trachea midline - Respiratory normal respiratory effort, clear to auscultation - Cardiovascular Cardiovascular exam: Present: RRR - Abdomen Abdomen: Present: bowel sounds present, soft, non tender - Integumentary no rash, no growths, no abnormal pigmentation - Neurologic CN 2-12 grossly intact - Psychiatric oriented to time, oriented to person, oriented to place, speech is normal, memory intact - Labs 09/03/17 05:06 09/03/17 05:06 Diabetes panel 09/03/17 Range/Units 05:06 Sodium 137 (136-145) mEq/L Potassium 3.9 (3.5-5.1) mEq/L Chloride 102 (98-107) mEq/L Carbon Dioxide 28 (23-29) mEq/L BUN 16 (8-23) mg/dL Creatinine 0.80 (0.70-1.30) mg/dL Glucose 92 (70-105) mg/dL Calcium 8.6 (8.6-10.3) mg/dL Calcium panel 09/03/17 Range/Units 05:06 Calcium 8.6 (8.6-10.3) mg/dL Pituitary panel 09/03/17 Range/Units 05:06 Sodium 137 (136-145) mEq/L Potassium 3.9 (3.5-5.1) mEq/L Chloride 102 (98-107) mEq/L Carbon Dioxide 28 (23-29) mEq/L BUN 16 (8-23) mg/dL Creatinine 0.80 (0.70-1.30) mg/dL Glucose 92 (70-105) mg/dL Calcium 8.6 (8.6-10.3) mg/dL Adrenal panel 09/03/17 Range/Units 05:06 Sodium 137 (136-145) mEq/L Potassium 3.9 (3.5-5.1) mEq/L Chloride 102 (98-107) mEq/L Carbon Dioxide 28 (23-29) mEq/L BUN 16 (8-23) mg/dL Creatinine 0.80 (0.70-1.30) mg/dL Glucose 92 (70-105) mg/dL Calcium 8.6 (8.6-10.3) mg/dL Consult Discharge Plan - Plan Instructions: High Fiber Diet (GEN) Additional Instructions: High fiber diet Referrals: Rocio Cervantes CNP [Primary Care Provider] - Uziel Leiva DO [Partnered Physician] - 09/21/17 9:10 am (hospital follow-up) Prescriptions: Docusate [Colace] 100 mg PO BID #60 capsule Ferrous Sulfate 325 mg PO BID #60 tablet - Attending Attestation For this encounter, I have reviewed the [employer]NAGER [employer] SAL[employer] or PA documentation, treatment plan, and medical decision making; and I have had face to face time with this patient.
[2017-09-03] MEDS ORDERED: Cefdinir 300 MG CAPSULE PO SCH (09:00)
[2017-09-03] MEDS: Metoprolol XL (24 HR) Succ 25 MG TAB.ER.24H PO SCH (09:22)
[2017-09-03 10:51] VITALS: BP 118/58
--- NOTE | 2017-09-03 13:08 | Discharge Summary ---
- NOTES TO OUTPATIENT PROVIDER Notes to Outpatient Provider: Patient needs a close follow-up with serial hemoglobins at least weekly. He is refusing all blood transfusions while in house and has a follow-up planned with general surgery as an outpatient within 2 weeks time. Orders not resulted at time of discharge: Pending orders 09/01/17 12:30 Type and Screen [BBK] Stat 09/02/17 06:35 Red Blood Cells [BBK] Stat Date of Encounter: 09/03/17 Time of Encounter: 13:06 - Discharge Diagnosis (1) Acute blood loss anemia Priority: Primary Status: Acute (2) Bronchiectasis Priority: Secondary Status: Acute Qualifiers: Bronchiectasis type: with acute lower respiratory infection Qualified Code( s): J47.0 - Bronchiectasis with acute lower respiratory infection (3) GERD (gastroesophageal reflux disease) Priority: Secondary Status: Chronic Qualifiers: Esophagitis presence: without esophagitis Qualified Code(s): K21.9 - Gastro -esophageal reflux disease without esophagitis (4) Hypertension Priority: Secondary Status: Chronic Qualifiers: Hypertension type: essential hypertension Qualified Code(s): I10 - Essential (primary) hypertension Hospital course: Mr. Small is a 77 year old male who was admitted for acute blood loss anemia following multiple episodes of bright red blood per rectum. His hemoglobin on admission was 9.3 and dropped slowly to the low eights and then 6.9 today. Patient's hemoglobin has remained stable since yesterday and today. Patient has been seen by general surgery and he had a recently done negative EGD and colonoscopy which did not show any location of acute bleeding. Patient is adamantly refusing any transfusions and wants to follow-up within the week with a repeat hemoglobin and get PRBC transfusion at that time. He also has a plan to follow up with general surgery Dr. Chadwick within 2 weeks' time. He understands the risks of becoming further anemic including myocardial oxygen demand and as worse as . He does not appear to have any symptomatic anemia as far as his vital signs are concerned. He is able to get up and ambulate without feeling dizziness. Hence I am going to comply with the patient 's request given that he has outpatient follow-up already planned, I will discharge him but he does need to follow very closely for the blood test within the week as well as with general surgery and outpatient. - Time Spent with Patient Total time spent providing and/or coordinating discharge services: Greater than 30 minutes - Discharge Medications Prescriptions: Docusate [Colace] 100 mg PO BID #60 capsule Ferrous Sulfate 325 mg PO BID #60 tablet Home Medications: Metoprolol XL (24 HR) Succ [Toprol Xl] 12.5 mg PO DAILY 02/04/15 [History] Niacin (24 HR) [Niaspan] 500 mg PO HS 02/04/15 [History] Albuterol Sulfate [Proair Hfa] 2 puff IH Q4H PRN 12/31/15 [History] Aspirin Enteric Coated [Aspirin EC] 81 mg PO DAILY 12/31/15 [History] Lansoprazole [Prevacid] 30 mg PO DAILY 12/31/15 [History] [place]-3/Dha/Epa/Fish Oil [Fish Oil 1,000 mg Softgel] 1,000 mg PO DAILY 03/11/16 [History] Oxygen 2 - 4 l NS AD 12/25/16 [History] Testosterone Cypionate [Depo-Testosterone] 200 mg IM Q14D 12/25/16 [History] Acetaminophen [Tylenol] 650 mg PO Q6HR PRN #0 tablet 12/28/16 [Rx] Ipratropium/Albuterol Neb [Duoneb] 3 ml IH QIDR inhsol 12/28/16 [Rx] Cholecalciferol (D-3) [Vitamin D] 1,000 unit PO DAILY 05/11/17 [History] Budesonide/Formoterol 160/4.5 [Symbicort 160/4.5] 2 puff IH BIDR 08/31/17 [ History] Cefdinir [Omnicef] 300 mg PO BID 08/31/17 [History] Docusate [Colace] 100 mg PO BID #60 capsule 09/03/17 [Rx] Ferrous Sulfate 325 mg PO BID #60 tablet 09/03/17 [Rx] Allergies/Adverse Reactions: 3 Allergy/AdvReac Type Severity Reaction Status Date / Time levofloxacin [From Levaquin] Allergy Rash Verified 08/31/17 08:36 ondansetron Allergy Hives Verified 08/31/17 08:36 [From Zofran (as hydrochloride)] Penicillins AdvReac Rash Verified 08/31/17 08:36 Date of admission: 08/31/17 13:43 Primary care physician: Rocio Cervantes CNP - Constitutional Vitals: Temp Pulse Resp BP Pulse Ox 97.5 F L 83 15 118/58 97 09/03/17 10:50 09/03/17 10:50 09/03/17 10:50 09/03/17 10:50 09/03/17 10:50 General appearance: Present: cooperative, A&O X 3, pleasant, no acute distress, answers questions appropriately Exam: GENERAL: Alert, no distress, cooperative EYES: PERRLA, EOMI EARS: External ears normal, canals clear OROPHARYNX: Lips, mucosa, and tongue normal. Teeth and gums normal. Oropharynx normal. NECK: No jugulovenous distention, No carotid bruits, Carotid pulse normal contour, Supple LUNGS: Lungs clear to auscultation, Good diaphragmatic excursion CARDIAC: Normal S1 and S2; no rubs, murmurs, or gallops ABDOMEN: Abdomen soft, non-tender, BS normal, No masses or organomegaly EXTREMITIES: Extremities normal, no deformities, edema, clubbing or skin discoloration. Good capillary refill., No ulcers NEURO: Gait normal. Reflexes normal and symmetric. Sensation grossly intact, Cranial nerves II-XII intact PULSES: 2+ radial, 2+ carotid Rest of the exam is non contributory - Patient Status Disposition: Home, Self-Care Overall status at discharge: patient is progressing back to baseline - Ambulatory Orders Ambulatory Orders: Complete Blood Count [HEME] Time Frame: 6 Days, Facility: [facility], Location: Lab - Discharge Instructions Instructions: High Fiber Diet (GEN) Follow Up With: Uziel Leiva DO [Partnered Physician] - 09/21/17 9:10 am (hospital follow-up) Rocio Cervantes CNP [Primary Care Provider] - Additional Instructions: High fiber diet - Diet and Activity Activity: increase activity as tolerated Diet: advance to your usual diet
== END 2017-09-03 13:40 | disposition home or self-care (01) | DRG 377 ==
LOC: EMEROO 08:29 → 3ANU 13:43 → SUATTDRO 13:43 → 3ANU 14:13
PROVIDERS: ADMIT Family Medicine; ATTEND Internal Medicine

== ENCOUNTER 2020-05-16 19:22 | Observation (INO) ==
[2020-05-16 20:10] LABS: Basophils % 0.1 %; Hematocrit 32.3 % (37.5-50.1); Hemoglobin 10.6 g/dL (12.9-16.9); Immature Granulocytes % 0.5 % (0-4); Lymphocytes # 1.1 K/mcL (0.6-4.6); Mean Corpuscular HGB Conc 32.8 g/dL (31.6-35.5); Mean Corpuscular Hemoglobin 27.4 pg (28.0-33.3); Mean Corpuscular Volume 83.5 fL (83.0-100.0); Mean Platelet Volume 8.6 fL (9.4-12.4); Monocytes # 0.5 K/mcL (0.0-1.3); Monocytes % 4.5 %; Neutrophils # 10.2 K/mcL (1.6-8.9); Platelet Count 294 K/mcL (140-400); Red Blood Count 3.87 M/mcL (4.19-5.50); Red Cell Distribution Width 17.1 % (11.5-14.5); Segmented Neutrophils % 85.9 %; White Blood Count 11.8 K/mcL (4.3-11.1)
[2020-05-16 20:18] LABS: D-Dimer 685 ng/mLFEU (0-500); Fibrinogen 383 mg/dL (169-393)
[2020-05-16 20:35] LABS: Alanine Aminotransferase 8 Units/L (7-52); Albumin 3.8 g/dL (3.5-5.7); Alkaline Phosphatase 68 Units/L (34-104); Aspartate Amino Transferase 21 Units/L (13-39); BUN/Creatinine Ratio 31 (6-26); Bilirubin,Total 0.3 mg/dL (0.3-1.0); Blood Urea Nitrogen 21 mg/dL (8-23); Calcium 8.7 mg/dL (8.6-10.3); Carbon Dioxide 27 mEq/L (23-29); Chloride 87 mEq/L (98-107); Globulin 3.7 g/dL (2.4-3.5); Glucose 105 mg/dL (70-105); Osmolality,Calculated 263 (280-300); Potassium 4.3 mEq/L (3.5-5.1); Sodium 125 mEq/L (136-145); Total Protein 7.5 g/dL (6.4-8.9); Troponin I 0.04 ng/mL (< 0.04); eGFR For African Americans > 60 (> 60); eGFR For Non-African Americans > 60 (> 60)
[2020-05-16 20:53] LABS: Ferritin 44 ng/mL (20-250)
[2020-05-16] MEDS ORDERED: Isovue-370 500 ML BOTTLE IVP ONE (21:14)
[2020-05-16] MEDS ORDERED: Dexamethasone 4 MG/ML VIAL IVP ONE (21:29)
[2020-05-16] MEDS ORDERED: cefTRIAXone 1,000 MG in Water for inj. (sterile) 10 ML IVP ONE (21:29)
[2020-05-16] MEDS ORDERED: Azithromycin 500 MG in 0.9 % Sodium Chloride 250 ML IVPB ONE (21:29)
[2020-05-17] MEDS ORDERED: Metoclopramide 10 MG/2 ML VIAL IVP ONE (00:19)
[2020-05-17] MEDS ORDERED: Naloxone 0.4 MG/ML INJ IVP PRN (01:30)
[2020-05-17] MEDS ORDERED: Ondansetron ODT 4 MG TAB.RAPDIS SL PRN (01:30)
[2020-05-17] MEDS ORDERED: Acetaminophen 325 MG TABLET PO PRN (01:30)
[2020-05-17] MEDS ORDERED: Ipratropium/Albuterol Neb 3 ML IH PRN (01:33)
[2020-05-17] MEDS ORDERED: 0.9 % Sodium Chloride 500 ML IVC PRN (01:36)
[2020-05-17 04:16] LABS: Hematocrit 33.3 % (37.5-50.1); Hemoglobin 10.6 g/dL (12.9-16.9); Immature Granulocytes % 0.9 % (0-4); Lymphocytes # 0.6 K/mcL (0.6-4.6); Lymphocytes % 11.2 %; Mean Corpuscular HGB Conc 31.8 g/dL (31.6-35.5); Mean Corpuscular Hemoglobin 26.6 pg (28.0-33.3); Mean Corpuscular Volume 83.5 fL (83.0-100.0); Mean Platelet Volume 8.3 fL (9.4-12.4); Monocytes # 0.1 K/mcL (0.0-1.3); Monocytes % 2.3 %; Neutrophils # 4.8 K/mcL (1.6-8.9); Platelet Count 247 K/mcL (140-400); Red Blood Count 3.99 M/mcL (4.19-5.50); Red Cell Distribution Width 17.2 % (11.5-14.5); Segmented Neutrophils % 85.6 %
[2020-05-17 04:21] LABS: White Blood Count 5.6 K/mcL (4.3-11.1)
[2020-05-17 04:29] LABS: INR 1.1; Prothrombin Time 12.6 Seconds (9.4-12.1)
[2020-05-17 04:38] LABS: BUN/Creatinine Ratio 30 (6-26); Blood Urea Nitrogen 24 mg/dL (8-23); Calcium 8.8 mg/dL (8.6-10.3); Carbon Dioxide 30 mEq/L (23-29); Chloride 89 mEq/L (98-107); Glucose 137 mg/dL (70-105); Magnesium 1.8 mg/dL (1.6-2.6); Osmolality,Calculated 270 (280-300); Phosphorous 5.8 mg/dL (2.7-4.5); Potassium 3.9 mEq/L (3.5-5.1); Sodium 127 mEq/L (136-145); eGFR For African Americans > 60 (> 60); eGFR For Non-African Americans > 60 (> 60)
[2020-05-17] MEDS: *HR* Heparin 5,000 UNIT/ML VIAL SQ SCH ×3 (04:47→19:46)
[2020-05-17] MEDS ORDERED: cefTRIAXone 1,000 MG in 0.9 % Sodium Chloride Mini Bag 100 ML IVPB SCH (09:00)
[2020-05-17] MEDS: Folic Acid 1 MG TABLET PO SCH (09:13)
[2020-05-17] MEDS: dexAMETHasone 4 MG TABLET PO SCH (09:19)
[2020-05-17] MEDS: Cefepime HCl 2,000 MG in Water for inj. (sterile) 20 ML IVP SCH ×2 (15:24→23:23)
[2020-05-17] MEDS: Budesonide/Formoterol 160/4.5 1 PUFF INH IH SCH (20:57)
[2020-05-18 00:58] LABS: Hematocrit 32.5 % (37.5-50.1); Hemoglobin 10.4 g/dL (12.9-16.9); Immature Granulocytes % 0.5 % (0-4); Lymphocytes # 0.8 K/mcL (0.6-4.6); Lymphocytes % 10.7 %; Mean Corpuscular Hemoglobin 26.8 pg (28.0-33.3); Mean Corpuscular Volume 83.8 fL (83.0-100.0); Mean Platelet Volume 8.5 fL (9.4-12.4); Monocytes # 0.4 K/mcL (0.0-1.3); Monocytes % 5.1 %; Neutrophils # 6.2 K/mcL (1.6-8.9); Platelet Count 285 K/mcL (140-400); Red Blood Count 3.88 M/mcL (4.19-5.50); Red Cell Distribution Width 17.1 % (11.5-14.5); Segmented Neutrophils % 83.7 %; White Blood Count 7.5 K/mcL (4.3-11.1)
[2020-05-18 01:19] LABS: Alanine Aminotransferase 7 Units/L (7-52); Albumin 3.4 g/dL (3.5-5.7); Albumin/Globulin Ratio 0.9 (1.1-2.2); Alkaline Phosphatase 55 Units/L (34-104); Aspartate Amino Transferase 15 Units/L (13-39); BUN/Creatinine Ratio 42 (6-26); Bilirubin,Total 0.2 mg/dL (0.3-1.0); Blood Urea Nitrogen 30 mg/dL (8-23); Calcium 8.6 mg/dL (8.6-10.3); Carbon Dioxide 27 mEq/L (23-29); Chloride 95 mEq/L (98-107); Globulin 3.7 g/dL (2.4-3.5); Glucose 143 mg/dL (70-105); Osmolality,Calculated 279 (280-300); Potassium 4.4 mEq/L (3.5-5.1); Sodium 130 mEq/L (136-145); Total Protein 7.1 g/dL (6.4-8.9); eGFR For African Americans > 60 (> 60); eGFR For Non-African Americans > 60 (> 60)
[2020-05-18] MEDS: *HR* Heparin 5,000 UNIT/ML VIAL SQ SCH (05:45)
[2020-05-18] MEDS: Cefepime HCl 2,000 MG in Water for inj. (sterile) 20 ML IVP SCH (08:29)
[2020-05-18] MEDS: dexAMETHasone 4 MG TABLET PO SCH (08:30)
[2020-05-18] MEDS: Folic Acid 1 MG TABLET PO SCH (08:30)
[2020-05-18] MEDS: Budesonide/Formoterol 160/4.5 1 PUFF INH IH SCH (08:57)
[2020-05-18] MEDS ORDERED: Metoprolol XL (24 HR) Succ 25 MG TAB.ER.24H PO SCH (09:00)
[2020-05-18] MEDS ORDERED: Aspirin Enteric Coated 81 MG Tablet PO SCH (09:00)
[2020-05-18 11:00] VITALS: BP 116/63
== END 2020-05-18 13:50 | disposition home or self-care (01) ==
LOC: EMEROOARM 19:22 → 2NENU 19:22 → SUATTDRO 05-17 00:08 → CDU 05-17 00:42
PROVIDERS: ADMIT Internal Medicine; ATTEND Family Medicine

== ENCOUNTER 2021-03-24 11:47 | Inpatient (IN) ==
[2021-03-24] MEDS ORDERED: 0.9 % Sodium Chloride 1,000 ML IVC ONE (13:26)
[2021-03-24] MEDS ORDERED: Cefepime HCl 2,000 MG in Water for inj. (sterile) 10 ML IVP ONE (13:26)
[2021-03-24 14:04] LABS: Basophils % 0.6 %; Eosinophils % 0.6 %; Hematocrit 32.2 % (37.5-50.1); Hemoglobin 9.7 g/dL (12.9-16.9); Immature Granulocytes % 0.2 % (0-4); Lymphocytes # 1.7 K/mcL (0.6-4.6); Lymphocytes % 31.9 %; Mean Corpuscular HGB Conc 30.1 g/dL (31.6-35.5); Mean Corpuscular Hemoglobin 26.9 pg (28.0-33.3); Mean Corpuscular Volume 89.2 fL (83.0-100.0); Mean Platelet Volume 9.5 fL (9.4-12.4); Monocytes # 0.6 K/mcL (0.0-1.3); Monocytes % 10.6 %; Neutrophils # 2.9 K/mcL (1.6-8.9); Platelet Count 283 K/mcL (140-400); Red Blood Count 3.61 M/mcL (4.19-5.50); Red Cell Distribution Width 16.2 % (11.5-14.5); Segmented Neutrophils % 56.1 %; White Blood Count 5.2 K/mcL (4.3-11.1)
[2021-03-24 14:12] LABS: INR 1.5; Prothrombin Time 16.6 Seconds (9.4-12.1)
[2021-03-24 14:15] LABS: Activated Partial Thrombo Time 31.8 Seconds (26.0-36.0)
[2021-03-24] MEDS ORDERED: Naloxone 0.4 MG/ML INJ IVP PRN (14:27)
[2021-03-24] MEDS ORDERED: Ondansetron ODT 4 MG TAB.RAPDIS SL PRN (14:27)
[2021-03-24] MEDS ORDERED: MOM Conc 10 ML UD.LIQ PO PRN (14:27)
[2021-03-24] MEDS ORDERED: Ipratropium/Albuterol Neb 3 ML IH PRN (14:38)
[2021-03-24] MEDS ORDERED: Perflutren Lipid Microsphere 1.3 ML in 0.9 % Sodium Chloride 8.7 ML IVP PRN ×2 (14:44→15:02)
[2021-03-24 14:49] LABS: Alanine Aminotransferase 239 Units/L (7-52); Albumin 3.5 g/dL (3.5-5.7); Albumin/Globulin Ratio 0.7 (1.1-2.2); Alkaline Phosphatase 123 Units/L (34-104); Aspartate Amino Transferase 130 Units/L (13-39); BUN/Creatinine Ratio 25 (6-26); Bilirubin,Direct 0.2 mg/dL (0.0-0.2); Bilirubin,Indirect 0.3 mg/dL (0.0-1.0); Bilirubin,Total 0.5 mg/dL (0.3-1.0); Blood Urea Nitrogen 14 mg/dL (8-23); Calcium 8.6 mg/dL (8.6-10.3); Carbon Dioxide 32 mEq/L (23-29); Chloride 99 mEq/L (98-107); Globulin 4.9 g/dL (2.4-3.5); Glucose 108 mg/dL (70-105); Lipase 21 Units/L (11-82); Magnesium 1.6 mg/dL (1.6-2.6); Osmolality,Calculated 285 (280-300); Phosphorous 2.5 mg/dL (2.7-4.5); Potassium 3.8 mEq/L (3.5-5.1); Sodium 137 mEq/L (136-145); Total Protein 8.4 g/dL (6.4-8.9); Troponin I 0.05 ng/mL (< 0.04); eGFR For African Americans > 60 (> 60); eGFR For Non-African Americans > 60 (> 60)
[2021-03-24] MEDS ORDERED: Furosemide 20 MG/2 ML VIAL IVP ONE (14:57)
[2021-03-24 15:45] LABS: Adenovirus Not Detected (Not Detect); Bordetella Pertussis Not Detected (Not Detect); Chlamydophila pneumoniae Not Detected (Not Detect); Coronavirus 229E Not Detected (Not Detect); Coronavirus HKU1 Not Detected (Not Detect); Coronavirus NL63 Not Detected (Not Detect); Coronavirus OC43 Not Detected (Not Detect); Human Metapneumovirus Not Detected (Not Detect); Human Rhinovirus/Enterovirus Not Detected (Not Detect); Influenza A Subtype 2009 H1 Not Detected (Not Detect); Influenza B Not Detected (Not Detect); Mycoplasma pneumoniae Not Detected (Not Detect); Parainfluenza Virus 1 Not Detected (Not Detect); Parainfluenza Virus 2 Not Detected (Not Detect); Parainfluenza Virus 3 Not Detected (Not Detect); Parainfluenza Virus 4 Not Detected (Not Detect); Respiratory Syncytial Virus Not Detected (Not Detect); SARS-CoV-2 Not Detected (Not Detect)
[2021-03-24] MEDS ORDERED: Cefepime HCl 2,000 MG in 0.9 % Sodium Chloride Mini Bag 100 ML IVPB SCH (16:00)
[2021-03-24] MEDS ORDERED: Levalbuterol Neb 1.25 MG/3 ML ONE (21:53)
[2021-03-24] MEDS: Levalbuterol Neb 1.25 MG/3 ML IH SCH (22:00)
[2021-03-25] MEDS: Cefepime HCl 2,000 MG in 0.9 % Sodium Chloride Mini Bag 100 ML IVPB SCH ×4 (00:14→23:35)
[2021-03-25 02:17] LABS: Basophils % 0.4 %; Eosinophils % 0.4 %; Hemoglobin 8.4 g/dL (12.9-16.9); Immature Granulocytes % 0.4 % (0-4); Lymphocytes # 0.8 K/mcL (0.6-4.6); Lymphocytes % 12.3 %; Mean Corpuscular Hemoglobin 26.8 pg (28.0-33.3); Mean Corpuscular Volume 89.5 fL (83.0-100.0); Monocytes # 0.4 K/mcL (0.0-1.3); Monocytes % 5.7 %; Neutrophils # 5.5 K/mcL (1.6-8.9); Nucleated Red Blood Cells 0.3 /100 WBC (0); Platelet Count 242 K/mcL (140-400); Red Blood Count 3.13 M/mcL (4.19-5.50); Red Cell Distribution Width 16.1 % (11.5-14.5); Segmented Neutrophils % 80.8 %; White Blood Count 6.8 K/mcL (4.3-11.1)
[2021-03-25 02:35] LABS: BUN/Creatinine Ratio 20 (6-26); Blood Urea Nitrogen 16 mg/dL (8-23); Calcium 8.1 mg/dL (8.6-10.3); Carbon Dioxide 30 mEq/L (23-29); Chloride 100 mEq/L (98-107); Glucose 137 mg/dL (70-105); Osmolality,Calculated 285 (280-300); Potassium 4.1 mEq/L (3.5-5.1); Sodium 136 mEq/L (136-145); eGFR For African Americans > 60 (> 60); eGFR For Non-African Americans > 60 (> 60)
[2021-03-25] MEDS: Levalbuterol Neb 1.25 MG/3 ML IH SCH ×4 (03:51→21:02)
[2021-03-25] MEDS: *HR* Enoxaparin 40 MG/0.4 ML SYRINGE SQ SCH (05:19)
[2021-03-25 06:28] LABS: Iron < 10 mcg/dL (65-175); Transferrin 203 mg/dL (203-362)
[2021-03-25] MEDS ORDERED: *HR* Metoprolol 5 MG/5 ML VIAL IVP ONE (06:40)
[2021-03-25] MEDS: Metoprolol XL (24 HR) Succ 25 MG TAB.ER.24H PO SCH (08:04)
[2021-03-25] MEDS: Aspirin Enteric Coated 81 MG Tablet PO SCH (08:04)
[2021-03-25] MEDS: Furosemide 40 MG/4 ML VIAL IVP SCH ×2 (08:05→22:23)
[2021-03-25] MEDS ORDERED: Iron Sucrose Complex 250 MG in 0.9 % Sodium Chloride 250 ML IVPB SCH (10:00)
[2021-03-25 10:28] LABS: ABG Base Excess 3 mEq/L (-2 to 3); ABG HCO3 29 mEq/L (21-27); ABG Oxygen Saturation 85 % (95-98); ABG PCO2 47 mmHg (35-45); ABG PH 7.39 pH Units (7.32-7.45); ABG PO2 51 mmHg (85-104); ABG TCO2 30 mEq/L (20-26)
[2021-03-25 11:51] LABS: Bilirubin,Urine Negative (Negative); Blood,Urine Negative (Negative); Clarity,Urine Clear (Clear); Color,Urine Colorless (Yellow); Glucose,Urine (UA) Normal (Normal); Ketones,Urine Negative (Negative); Leukocyte Esterase,Urine Negative (Negative); Nitrite,Urine Negative (Negative); Protein,Urine Negative (Neg-Trace); Specific Gravity,Urine 1.009 (1.010-1.025); Urobilinogen,Urine Normal (Normal)
[2021-03-26 03:13] LABS: Basophils % 0.5 %; Eosinophils % 0.5 %; Hematocrit 29.1 % (37.5-50.1); Hemoglobin 8.8 g/dL (12.9-16.9); Immature Granulocytes % 0.5 % (0-4); Lymphocytes # 0.8 K/mcL (0.6-4.6); Lymphocytes % 12.6 %; Mean Corpuscular HGB Conc 30.2 g/dL (31.6-35.5); Mean Corpuscular Hemoglobin 26.1 pg (28.0-33.3); Mean Corpuscular Volume 86.4 fL (83.0-100.0); Mean Platelet Volume 9.5 fL (9.4-12.4); Monocytes # 0.6 K/mcL (0.0-1.3); Monocytes % 9.7 %; Neutrophils # 4.8 K/mcL (1.6-8.9); Platelet Count 209 K/mcL (140-400); Red Blood Count 3.37 M/mcL (4.19-5.50); Red Cell Distribution Width 16.2 % (11.5-14.5); Segmented Neutrophils % 76.2 %; White Blood Count 6.3 K/mcL (4.3-11.1)
[2021-03-26 03:32] LABS: Alanine Aminotransferase 130 Units/L (7-52); Albumin 2.9 g/dL (3.5-5.7); Albumin/Globulin Ratio 0.7 (1.1-2.2); Alkaline Phosphatase 105 Units/L (34-104); Aspartate Amino Transferase 49 Units/L (13-39); BUN/Creatinine Ratio 24 (6-26); Bilirubin,Total 0.6 mg/dL (0.3-1.0); Blood Urea Nitrogen 14 mg/dL (8-23); Calcium 8.3 mg/dL (8.6-10.3); Carbon Dioxide 32 mEq/L (23-29); Chloride 96 mEq/L (98-107); Globulin 4.4 g/dL (2.4-3.5); Glucose 90 mg/dL (70-105); Osmolality,Calculated 282 (280-300); Potassium 3.5 mEq/L (3.5-5.1); Sodium 136 mEq/L (136-145); Total Protein 7.3 g/dL (6.4-8.9); eGFR For African Americans > 60 (> 60); eGFR For Non-African Americans > 60 (> 60)
[2021-03-26] MEDS: Levalbuterol Neb 1.25 MG/3 ML IH SCH ×4 (04:48→21:00)
[2021-03-26] MEDS ORDERED: *HR* Metoprolol 5 MG/5 ML VIAL IVP ONE ×2 (05:07→20:52)
[2021-03-26] MEDS: *HR* Enoxaparin 40 MG/0.4 ML SYRINGE SQ SCH (06:27)
[2021-03-26] MEDS: Metoprolol XL (24 HR) Succ 25 MG TAB.ER.24H PO SCH (07:45)
[2021-03-26] MEDS: Cefepime HCl 2,000 MG in 0.9 % Sodium Chloride Mini Bag 100 ML IVPB SCH ×3 (07:45→23:53)
[2021-03-26] MEDS: Furosemide 40 MG/4 ML VIAL IVP SCH ×2 (07:46→20:38)
[2021-03-26] MEDS: Aspirin Enteric Coated 81 MG Tablet PO SCH (07:46)
[2021-03-26 14:34] LABS: Troponin I 0.09 ng/mL (< 0.04)
[2021-03-26] MEDS ORDERED: Ipratropium Neb 0.5 MG NEBULIZER IH PRN (15:14)
[2021-03-26 16:26] LABS: Total Protein,Pleural Fluid 3.1 g/dL
[2021-03-26 16:51] LABS: Appearance of Pleural Fl Clear (Clear); RBC,Pleural Fluid < 2000 RBC/mcL
[2021-03-26 18:11] LABS: Basophils,Pleural Fluid 0 %; Eosinophils,Pleural Fluid 0 %
[2021-03-26] MEDS: Melatonin 3 MG TABLET PO PRN (21:10)
[2021-03-27] MEDS: Levalbuterol Neb 1.25 MG/3 ML IH SCH ×4 (04:03→21:08)
[2021-03-27] MEDS: *HR* Enoxaparin 40 MG/0.4 ML SYRINGE SQ SCH (05:00)
[2021-03-27 06:14] LABS: Basophils % 0.3 %; Eosinophils # 0.1 K/mcL (0.0-0.6); Eosinophils % 0.8 %; Hematocrit 29.3 % (37.5-50.1); Hemoglobin 9.1 g/dL (12.9-16.9); Immature Granulocytes % 0.4 % (0-4); Lymphocytes # 1.2 K/mcL (0.6-4.6); Lymphocytes % 15.9 %; Mean Corpuscular HGB Conc 31.1 g/dL (31.6-35.5); Mean Corpuscular Hemoglobin 26.8 pg (28.0-33.3); Mean Corpuscular Volume 86.2 fL (83.0-100.0); Mean Platelet Volume 9.7 fL (9.4-12.4); Monocytes # 0.7 K/mcL (0.0-1.3); Neutrophils # 5.6 K/mcL (1.6-8.9); Nucleated Red Blood Cells 0.5 /100 WBC (0); Platelet Count 243 K/mcL (140-400); Red Cell Distribution Width 16.1 % (11.5-14.5); Segmented Neutrophils % 73.6 %; White Blood Count 7.5 K/mcL (4.3-11.1)
[2021-03-27 06:18] LABS: VBG HCO3 35 mEq/L (21-27); VBG PCO2 59 mmHg (41-51); VBG PH 7.37 pH Units (7.32-7.42); VBG PO2 68 mmHg (25-50)
[2021-03-27 06:32] LABS: BUN/Creatinine Ratio 27 (6-26); Blood Urea Nitrogen 21 mg/dL (8-23); Calcium 8.5 mg/dL (8.6-10.3); Carbon Dioxide 34 mEq/L (23-29); Chloride 96 mEq/L (98-107); Glucose 116 mg/dL (70-105); Magnesium 2.1 mg/dL (1.6-2.6); Osmolality,Calculated 286 (280-300); Potassium 3.6 mEq/L (3.5-5.1); Sodium 136 mEq/L (136-145); eGFR For African Americans > 60 (> 60); eGFR For Non-African Americans > 60 (> 60)
[2021-03-27] MEDS: Metoprolol XL (24 HR) Succ 25 MG TAB.ER.24H PO SCH (09:10)
[2021-03-27] MEDS: Aspirin Enteric Coated 81 MG Tablet PO SCH (09:10)
[2021-03-27] MEDS: Cefepime HCl 2,000 MG in 0.9 % Sodium Chloride Mini Bag 100 ML IVPB SCH ×3 (09:19→23:41)
[2021-03-27] MEDS ORDERED: lisinopriL 5 MG TABLET PO SCH (09:30)
[2021-03-27] MEDS: Furosemide 40 MG/4 ML VIAL IVP SCH (09:42)
[2021-03-27] MEDS: *HR* LORazepam Oral Conc 2 MG/ML SL PRN (18:22)
[2021-03-27] MEDS: Morphine Sulfate Oral CONC 10 MG/0.5 ML ORAL.SYG SL PRN (18:23)
[2021-03-27] MEDS: Melatonin 3 MG TABLET PO PRN (20:34)
[2021-03-27] MEDS ORDERED: Furosemide 40 MG/4 ML VIAL IVP SCH (21:00)
[2021-03-27 23:09] LABS: VBG HCO3 35 mEq/L (21-27); VBG PCO2 57 mmHg (41-51); VBG PO2 181 mmHg (25-50)
[2021-03-27] MEDS ORDERED: *HR* LORazepam 2 MG/ML VIAL IVP ONE (23:34)
[2021-03-27] MEDS ORDERED: Furosemide 40 MG/4 ML VIAL IVP ONE (23:34)
[2021-03-27] MEDS ORDERED: *HR* LORazepam 2 MG/ML VIAL ONE (23:36)
[2021-03-27] MEDS ORDERED: Scopolamine Patch 1.5 MG PATCH.TD72 TD ONE (23:42)
[2021-03-28 01:25] LABS: Alanine Aminotransferase 79 Units/L (7-52); Albumin 2.9 g/dL (3.5-5.7); Albumin/Globulin Ratio 0.7 (1.1-2.2); Alkaline Phosphatase 96 Units/L (34-104); Aspartate Amino Transferase 27 Units/L (13-39); BUN/Creatinine Ratio 27 (6-26); Bilirubin,Direct 0.2 mg/dL (0.0-0.2); Bilirubin,Indirect 0.4 mg/dL (0.0-1.0); Bilirubin,Total 0.6 mg/dL (0.3-1.0); Blood Urea Nitrogen 25 mg/dL (8-23); Calcium 8.4 mg/dL (8.6-10.3); Carbon Dioxide 33 mEq/L (23-29); Chloride 95 mEq/L (98-107); Globulin 4.3 g/dL (2.4-3.5); Glucose 111 mg/dL (70-105); Osmolality,Calculated 287 (280-300); Potassium 4.1 mEq/L (3.5-5.1); Sodium 136 mEq/L (136-145); Total Protein 7.2 g/dL (6.4-8.9); eGFR For African Americans > 60 (> 60); eGFR For Non-African Americans > 60 (> 60)
[2021-03-28] MEDS: Levalbuterol Neb 1.25 MG/3 ML IH SCH ×3 (03:15→16:27)
[2021-03-28] MEDS: *HR* Enoxaparin 40 MG/0.4 ML SYRINGE SQ SCH (06:09)
[2021-03-28 06:21] VITALS: BP 107/57; PULSE 103; TEMP 97.6; O2SAT 93
[2021-03-28] MEDS: Morphine Sulfate Oral CONC 10 MG/0.5 ML ORAL.SYG SL PRN ×3 (08:39→18:49)
[2021-03-28] MEDS: Aspirin Enteric Coated 81 MG Tablet PO SCH (08:47)
[2021-03-28] MEDS: Metoprolol XL (24 HR) Succ 25 MG TAB.ER.24H PO SCH (08:48)
[2021-03-28] MEDS: Cefepime HCl 2,000 MG in 0.9 % Sodium Chloride Mini Bag 100 ML IVPB SCH (08:50)
[2021-03-28] MEDS: *HR* LORazepam Oral Conc 2 MG/ML SL PRN (08:55)
[2021-03-28] MEDS ORDERED: Torsemide 20 MG TABLET PO SCH (09:00)
[2021-03-28] MEDS ORDERED: *HR* LORazepam 2 MG/ML VIAL IVP PRN (10:42)
[2021-03-28] MEDS ORDERED: Cefepime HCl 2,000 MG in 0.9 % Sodium Chloride Mini Bag 100 ML IVPB SCH (21:00)
== END 2021-03-28 19:08 | disposition expired | DRG 177 ==
LOC: 2ANU 11:47 → EMEROOARM 11:47 → SUATTDRO 14:03 → 2ANU 15:10 → SUATTDRO 03-25 16:59 → 2ANU 03-28 10:44
PROVIDERS: ADMIT Internal Medicine; ATTEND Internal Medicine